=== PATIENT | male | born 1935 | race Caucasian/White ===

== ENCOUNTER 2016-12-08 06:21 | Outpatient (CLI) ==
[2016-12-08 10:31] VITALS: BMI 34.0
== END 2016-12-08 06:22 | disposition home or self-care (01) ==
LOC: AMBL 06:21
PROVIDERS: ATTEND Family Medicine
DX: R06.2 Wheezing (principal); I49.3 Ventricular premature depolarization; J45.909 Unspecified asthma, uncomplicated

== ENCOUNTER 2016-12-08 06:26 | Inpatient (IN) ==
[2016-12-08] MEDS ORDERED: DUONEB NEB STA ×2 (06:44→08:16)
[2016-12-08] MEDS ORDERED: SOLU-MEDROL 125 MG IVP STA (06:44)
[2016-12-08 06:48] LABS: ABG BASE EXCESS 0 (-2.0-2.0); ABG HCO3 24.8 (22.0-26.0); ABG PCO2 40.5 mmHg (35-45); ABG PH 7.394 (7.35-7.45); ABG TCO2 26 (22.0-28.0)
--- NOTE | 2016-12-08 06:49 | ED.PDOC ---
General Stated Complaint: Coughing congestion for couple days, patient was started on the antibiotics by PMD, today short of breath not able walk so called EMT na dbrought for the evaluation. Time Seen by Physician: 06:47 Mode of Arrival: Ambulance Information Source: Patient, Family Nursing and Triage Documentation Reviewed and Agree: Yes <NANETTE LARRY - Last Filed: 12/08/16 06:47> <MARISA POLO - Last Filed: 12/08/16 09:18> ED Provider: Dr. MARISA POLO (NANETTE LARRY) (MARISA POLO) Chief Complaint: Shortness of Air Primary Care Provider: CHELSEY BOB (NANETTE LARRY) (MARISA POLO) Respiratory Complaint Exam - Shortness of Air Complaint/Exam Symptoms Are: Still present Timing: Constant Initial Severity: Moderate Current Severity: Severe Character: Reports: Dyspnea at rest, Dyspnea on exertion Aggravating: Reports: Movement Alleviating: Reports: None Associated Signs and Symptoms: Reports: Cough, Wheezing, Nasal congestion. Denies: Chest pain with cough, Chest pain, Fever, Chills, Diaphoresis, Dizziness , Calf pain, Calf swelling, Edema, Rapid breathing, Labored breathing, Decreased intake Related History: Reports: Similar episode History of Healthcare-Acquired Pneumonia: No Pulmonary Embolism Risk Factors: Reports: None Cardiac Risk Factors: Reports: None Pseudomonas Risk Factors: Reports: None Tuberculosis Risk Factors: Reports: None Home Oxygen Use: No Recent Stress Test: No Recent Echo/LV Function: No Respiratory Distress: Moderate Stridor Present: No Tracheal Deviation: No Subcutaneous Emphysema: No Accessory Muscle Use: Yes Retractions: Supraclavicular Diminished Breath Sounds: No Prolonged Expiratory Phase: Yes Unable to Speak Full Sentences: Yes Fatigue: No Leg Swelling: No Rosemary's Sign Present: No Grunting Respirations: No Kussmaul Respirations: No Differential Diagnoses: COPD Exacerbation, Pneumonia <NANETTE LARRY - Last Filed: 12/08/16 06:47> Review of Systems - Review Of Systems Constitutional: Reports: Malaise, Weakness Eyes: Reports: No symptoms Ears, Nose, Mouth, Throat: Reports: No symptoms Respiratory: Reports: Cough, Orthopnea, Short of air Cardiac: Reports: No symptoms GI: Reports: No symptoms : Reports: No symptoms Musculoskeletal: Reports: No symptoms Skin: Reports: No symptoms Neurological: Reports: No symptoms Endocrine: Reports: No symptoms Hematologic/Lymphatic: Reports: No symptoms All Other Systems: Reviewed and Negative <NANETTE LARRY Last Filed: 12/08/16 06:47> Past Medical History - Past Medical History Previously Healthy: No Endocrine: Reports: None Cardiovascular: Reports: None Respiratory: Reports: COPD Hematological: Reports: None Gastrointestinal: Reports: None Genitourinary: Reports: Kidney stones Neuro/Psych: Reports: Anxiety Musculoskeletal: Reports: Arthritis Cancer: Reports: None - Surgical History General Surgical History: Reports: Cholecystectomy, Orthopedic (Knee replacement. ), Other ( ABDOMINAL AORTIC ANEURISM REPAIR 8 YRS AGO, BOTH KNEE REPLACEMENTS, BOTH HIP REPLACEMENTS.) - Family History Family History: Reports: Unknown - Social History Smoking Status: Never smoker Hx Substance Use: No Alcohol Screening: None - Immunizations Tetanus Shot up to Date: No (unsure) <NANETTE LARRY Last Filed: 12/08/16 06:47> Physical Exam - Physical Exam Appearance: Ill-appearing, Obese Ill-appearing: Moderate Eyes: ALEXANDRA, EOMI, Conjunctiva clear ENT: Ears normal, Nose normal, Oropharynx normal Respiratory: Breath sounds diminished, Crackles, Wheezes Cardiovascular: RRR, Pulses normal, No rub, No murmur GI/: Soft, Nontender, No masses, Bowel sounds normal, No Organomegaly Musculoskeletal: Normal strength, ROM intact, No edema, No calf tenderness Skin: Warm, Dry, Normal color Neurological: Sensation intact, Motor intact, Reflexes intact, Cranial nerves intact, Alert, Oriented Psychiatric: Affect appropriate, Mood appropriate <NANETTE LARRY Last Filed: 12/08/16 06:47> Physician Notification - Case Discussed Physician Notified: pmd Time of Notification: 09:18 (admitt) <MARISA POLO - Last Filed: 12/08/16 09:18> Critical Care Note - Critical Care Note Total Time (mins): 0 <NANETTE LARRY Filed: 12/08/16 06:47> Course - Course Hematology/Chemistry: 12/08/16 07:05 12/08/16 07:05 <MARISA POLO - Last Filed: 12/08/16 09:18> - Course Orders, Labs, Meds: Lab Review 12/08/16 12/08/16 12/08/16 06:44 06:45 07:05 WBC 12.08 H RBC 5.62 Hgb 14.6 Hct 46.0 MCV 81.9 MCH 26.0 L MCHC 31.7 L RDW Coeff of Klarissa 14.5 Plt Count 323 Immature Gran % (Auto) 0.6 Neut % (Auto) 67.1 Lymph % (Auto) 8.7 L Stephenson % (Auto) 23.3 H Eos % (Auto) 0.0 Baso % (Auto) 0.3 Immature Gran # (Auto) 0.1 Neut # 8.1 H Lymph # 1.1 Stephenson # 2.8 H Eos # 0.0 Baso # 0.0 D-Dimer 0.91 Puncture Site Lb O2 Saturation 93.0 L ABG pH 7.394 ABG pCO2 40.5 ABG pO2 67.0 L ABG HCO3 24.8 ABG Total CO2 26 ABG Base Excess 0 FiO2 % 21.0 Sodium 140 Potassium 3.9 Chloride 100 Carbon Dioxide 26 Anion Gap 17.9 BUN 19 H Creatinine 1.09 Estimated GFR (MDRD) 65.00 BUN/Creatinine Ratio 17.43 Glucose 114 Calcium 9.6 Total Bilirubin 0.72 AST 33 ALT 26 Alkaline Phosphatase 93 Total Creatine Kinase 246 CK-MB (CK-2) 3.0 CK-MB (CK-2) % 1.71757 Troponin I 0.0260 B-Natriuretic Peptide 93 Total Protein 7.5 Albumin 3.1 L Globulin 4.4 Albumin/Globulin Ratio 0.70 Influenza A (Rapid) Negative Influenza B (Rapid) Negative Orders Category Date Time Status ADMIT PATIENT INPATIENT .TO [facility] (MONITORED BED) ADMISSION 12/08/16 09: 09 Ordered ABG DRAW REQUEST Stat CARDIO 12/08/16 06:45 Completed EKG-(ED ONLY) Stat CARDIO 12/08/16 06:44 Completed EKG-(IP & OP ONLY) DAILY CARDIO 12/09/16 06:00 Ordered EKG-(IP & OP ONLY) DAILY CARDIO 12/10/16 06:00 Ordered EKG-(IP & OP ONLY) DAILY CARDIO 12/11/16 06:00 Ordered NEBULIZER TREATMENT Stat CARDIO 12/08/16 06:45 Completed NEBULIZER TREATMENT Stat CARDIO 12/08/16 08:16 Ordered OXYGEN Routine CARDIO 12/08/16 09:11 Ordered ACTIVITY .Complete BR CARE 12/08/16 09:09 Ordered TELEMETRY MONITORING TELE CARE 12/08/16 09:09 Ordered VITAL SIGNS Q8HR CARE 12/08/16 09:09 Ordered REGULAR DIET DIETARY 12/08/16 Lunch Ordered ED IV/MEDIPORT/POWERPORT .ONCE EMERGENCY 12/08/16 06:44 Active ABG Stat LAB 12/08/16 06:44 Completed B-TYPE NATRIURETIC PEPTIDE Stat LAB 12/08/16 07:05 Completed BLOOD CULTURE Stat LAB 12/08/16 07:05 Received CBC W/ AUTO DIFF DAILY@0600 LAB 12/09/16 06:00 Ordered CBC W/ AUTO DIFF DAILY@0600 LAB 12/10/16 06:00 Ordered CBC W/ AUTO DIFF DAILY@0600 LAB 12/11/16 06:00 Ordered CBC W/ AUTO DIFF DAILY@0600 LAB 12/12/16 06:00 Ordered CBC W/ AUTO DIFF DAILY@0600 LAB 12/13/16 06:00 Ordered CBC W/ AUTO DIFF DAILY@0600 LAB 12/14/16 06:00 Ordered CBC W/ AUTO DIFF DAILY@0600 LAB 12/15/16 06:00 Ordered CBC W/ AUTO DIFF DAILY@0600 LAB 12/16/16 06:00 Ordered CBC W/ AUTO DIFF DAILY@0600 LAB 12/17/16 06:00 Ordered CBC W/ AUTO DIFF DAILY@0600 LAB 12/18/16 06:00 Ordered CBC W/ AUTO DIFF DAILY@0600 LAB 12/19/16 06:00 Ordered CBC W/ AUTO DIFF DAILY@0600 LAB 12/20/16 06:00 Ordered CBC W/ AUTO DIFF DAILY@0600 LAB 12/21/16 06:00 Ordered CBC W/ AUTO DIFF DAILY@0600 LAB 12/22/16 06:00 Ordered CBC W/ AUTO DIFF DAILY@0600 LAB 12/23/16 06:00 Ordered CBC W/ AUTO DIFF DAILY@0600 LAB 12/24/16 06:00 Ordered CBC W/ AUTO DIFF DAILY@0600 LAB 12/25/16 06:00 Ordered CBC W/ AUTO DIFF DAILY@0600 LAB 12/26/16 06:00 Ordered CBC W/ AUTO DIFF DAILY@0600 LAB 12/27/16 06:00 Ordered CBC W/ AUTO DIFF DAILY@0600 LAB 12/28/16 06:00 Ordered CBC W/ AUTO DIFF Stat LAB 12/08/16 07:05 Completed COMPREHENSIVE METABOLIC PANEL DAILY@0600 LAB 12/09/16 06:00 Ordered COMPREHENSIVE METABOLIC PANEL DAILY@0600 LAB 12/10/16 06:00 Ordered COMPREHENSIVE METABOLIC PANEL DAILY@0600 LAB 12/11/16 06:00 Ordered COMPREHENSIVE METABOLIC PANEL DAILY@0600 LAB 12/12/16 06:00 Ordered COMPREHENSIVE METABOLIC PANEL DAILY@0600 LAB 12/13/16 06:00 Ordered COMPREHENSIVE METABOLIC PANEL DAILY@0600 LAB 12/14/16 06:00 Ordered COMPREHENSIVE METABOLIC PANEL DAILY@0600 LAB 12/15/16 06:00 Ordered COMPREHENSIVE METABOLIC PANEL DAILY@0600 LAB 12/16/16 06:00 Ordered COMPREHENSIVE METABOLIC PANEL DAILY@0600 LAB 12/17/16 06:00 Ordered COMPREHENSIVE METABOLIC PANEL DAILY@0600 LAB 12/18/16 06:00 Ordered COMPREHENSIVE METABOLIC PANEL DAILY@0600 LAB 12/19/16 06:00 Ordered COMPREHENSIVE METABOLIC PANEL DAILY@0600 LAB 12/20/16 06:00 Ordered COMPREHENSIVE METABOLIC PANEL DAILY@0600 LAB 12/21/16 06:00 Ordered COMPREHENSIVE METABOLIC PANEL DAILY@0600 LAB 12/22/16 06:00 Ordered COMPREHENSIVE METABOLIC PANEL DAILY@0600 LAB 12/23/16 06:00 Ordered COMPREHENSIVE METABOLIC PANEL DAILY@0600 LAB 12/24/16 06:00 Ordered COMPREHENSIVE METABOLIC PANEL DAILY@0600 LAB 12/25/16 06:00 Ordered COMPREHENSIVE METABOLIC PANEL DAILY@0600 LAB 12/26/16 06:00 Ordered COMPREHENSIVE METABOLIC PANEL DAILY@0600 LAB 12/27/16 06:00 Ordered COMPREHENSIVE METABOLIC PANEL DAILY@0600 LAB 12/28/16 06:00 Ordered COMPREHENSIVE METABOLIC PANEL Stat LAB 12/08/16 07:05 Completed CREATINE KINASE Q8H LAB 12/08/16 15:15 Ordered CREATINE KINASE Q8H LAB 12/08/16 23:15 Ordered CREATINE KINASE Stat LAB 12/08/16 07:05 Completed D-DIMER Stat LAB 12/08/16 07:05 Completed RAPID FLU A/B Stat LAB 12/08/16 06:45 Completed TROPONIN I Q8H LAB 12/08/16 15:15 Ordered TROPONIN I Q8H LAB 12/08/16 23:15 Ordered TROPONIN I Stat LAB 12/08/16 07:05 Completed 0.9 % Sodium Chloride [Saline Flush] MEDS 12/08/16 06:44 Active 1 syr IVF PRN PRN Alprazolam [Xanax] MEDS 12/08/16 09:14 Ordered 0.5 mg PO BID PRN Azithromycin [Zithromax] MEDS 12/08/16 09:30 Ordered 250 mg PO DIRECTED Ceftriaxone Sodium [Rocephin] MEDS 12/08/16 08:48 Discontinued 1 gm .ROUTE .STK-MED ONE Ceftriaxone Sodium [Rocephin] 1 gm MEDS 12/09/16 09:00 Ordered 0.9 % Sodium Chloride [Sodium Chloride] 50 ml IV DAILY Ceftriaxone Sodium [Rocephin] 1.5 gm MEDS 12/08/16 08:37 Ordered 0.9 % Sodium Chloride [Sodium Chloride] 50 ml IV ONCE Furosemide [Lasix Tab] MEDS 12/09/16 06:30 Ordered 40 mg PO QDAC Imipramine HCl [Tofranil] MEDS 12/08/16 21:00 Ordered 200 mg PO BEDTIME Ipratropium/Albuterol Neb [Duoneb] MEDS 12/08/16 06:44 Discontinued 1 vial NEB ONCE STA Ipratropium/Albuterol Neb [Duoneb] MEDS 12/08/16 08:16 Discontinued 1 vial NEB ONCE STA Levofloxacin/D5w [Levaquin] 500 mg MEDS 12/09/16 09:00 Stop Req Premix 100 ml D5w 1 bag IV DAILY Methylprednisolone Sod Succ/Pf [Solu-Medrol 125 mg] MEDS 12/08/16 06:44 Discontinued 125 mg IVP ONCE STA Methylprednisolone Sod Succ/Pf [Solu-Medrol 125 mg] MEDS 12/08/16 21:00 Ordered 60 mg IVP Q12HR Olanzapine [Zyprexa] MEDS 12/08/16 21:00 Ordered 2.5 mg PO BEDTIME Pravastatin Sodium [Pravachol] MEDS 12/08/16 21:00 Ordered 40 mg PO BEDTIME Sodium Chloride 0.9% [Sodium Chloride] 1,000 ml MEDS 12/08/16 09:30 Ordered IV 75 mls/hr CHEST, 1V AP ONLY Stat RADS 12/08/16 09:[address] CHEST W/O CONTRAST Stat RADS 12/08/16 06:44 Completed Medications Generic Name Dose Route Start Last Admin Trade Name Freq PRN Reason Stop Dose Admin Alprazolam 0.5 mg 12/08/16 09:14 Xanax PO BID PRN Anxiety Azithromycin 250 mg 12/08/16 09:30 Zithromax PO DIRECTED LIBRA Furosemide 40 mg 12/09/16 06:30 Lasix Tab PO QDAC LIBRA Ceftriaxone Sodium 1 gm/ 50 mls @ 75 mls/hr 12/09/16 09:00 Sodium Chloride IV DAILY LIBRA Sodium Chloride 1,000 mls @ 75 mls/hr 12/08/16 09:30 Sodium Chloride IV .[id number] LIBRA Imipramine HCl 200 mg 12/08/16 21:00 Tofranil PO BEDTIME LIBRA Methylprednisolone Sodium Succinate 60 mg 12/08/16 21:00 Solu-Medrol 125 Mg IVP Q12HR LIBRA Olanzapine 2.5 mg 12/08/16 21:00 Zyprexa PO BEDTIME LIBRA Pravastatin Sodium 40 mg 12/08/16 21:00 Pravachol PO BEDTIME LIBRA Sodium Chloride 1 syr 12/08/16 06:44 12/08/16 07:31 Saline Flush IVF 1 syr PRN PRN Administration To flush IV Discontinued Medications Generic Name Dose Route Start Last Admin Trade Name Freq PRN Reason Stop Dose Admin Albuterol/Ipratropium 1 vial 12/08/16 06:44 12/08/16 06:50 Duoneb NEB 12/08/16 06:45 1 vial ONCE STA Administration Albuterol/Ipratropium 1 vial 12/08/16 08:16 12/08/16 08:18 Duoneb NEB 12/08/16 08:17 1 vial ONCE STA Administration Ceftriaxone Sodium 1.5 gm/ 50 mls @ 75 mls/hr 12/08/16 08:37 12/08/16 08:54 Sodium Chloride IV 12/08/16 09:16 Not Given ONCE STA Levofloxacin/Dextrose 500 mg/ 100 mls @ 100 mls/hr 12/09/16 09:00 Dextrose IV DAILY LIBRA Methylprednisolone Sodium Succinate 125 mg 12/08/16 06:44 12/08/16 07:31 Solu-Medrol 125 Mg IVP 12/08/16 06:45 125 mg ONCE STA Administration (NANETTE LARRY) (MARISA POLO) Vital Signs: Temp Pulse Resp BP Pulse Ox 01/20/17 06:29 97.4 F L 122 H 28 H 144/100 H 88 L (NANETTE LARRY) (MARISA POLO) Departure - Departure Pt referred to PMD for follow-up: Yes Disposition Discussed With: Patient, Family <NANETTE LARRY - Last Filed: 12/08/16 06:47> - Departure Time of Disposition: 09:18 Pt referred to PMD for follow-up: Yes (admitt) <MARISA POLO - Last Filed: 12/08/16 09:18> - Departure Disposition: ADMITTED INPATIENT Discharge Problem: COPD exacerbation, Pneumonia Instructions: COPD (Chronic Obstructive Pulmonary Disease) (ED) Condition: Good Allergies/Adverse Reactions: Allergies No Known Allergies Allergy (Verified 12/08/16 06:40) Home Medications: Ambulatory Orders Escitalopram Oxalate [Lexapro] 40 tab PO DAILY 01/15/15 Furosemide [Lasix] 40 mg PO QDAC 01/15/15 Imipramine HCl [Tofranil] 200 mg PO BEDTIME 01/15/15 Memantine HCl [Namenda Xr] 28 mg PO DAILY 01/15/15 Pravastatin Sodium [Pravachol] 40 mg PO BEDTIME 01/15/15 Rivastigmine [Exelon 13.3 mg patch] 1 each TD BEDTIME 01/15/15 Alprazolam [Xanax] 0.5 mg PO BID PRN 09/07/15 Azithromycin [Zithromax] 250 mg PO DIRECTED #6 tablet 01/20/16 Methylprednisolone [Medrol Dosepak] 4 mg PO DIRECTED #1 pkg 01/20/16 Albuterol Sulfate [Proair Hfa] 2 puff IH Q4-6H PRN 12/08/16 Cyanocobalamin (Vitamin B-12) [Vitamin B-12] 500 mcg PO DAILY 12/08/16 Ergocalciferol (Vitamin D2) [Vitamin D2] 50,000 unit PO WEEKLY 12/08/16 Glycopyrrolate/Formoterol Fum [Bevespi Aerosphere Inhaler] 1 puff INH DIRECTED 12/08/16 Olanzapine [Zyprexa] 2.5 mg PO BEDTIME 12/08/16 Trazodone HCl [Desyrel] 50 mg PO DAILY PRN 12/08/16
[2016-12-08 07:22] LABS: BASOPHILS % (AUTO) 0.3 % (0.0-3.0); HEMOGLOBIN 14.6 g/dl (14.0-18.0); IMMATURE GRANULOCYTE % (AUTO) 0.6 % (0.0-5.0); LYMPHOCYTES # (AUTO) 1.1 K/uL (0.60-3.4); LYMPHOCYTES % (AUTO) 8.7 (10.0-50.0); MEAN CORPUSCULAR HGB CONC 31.7 (31.8-35.4); MEAN CORPUSCULAR VOLUME 81.9 fl (80.0-94.0); MONOCYTES # (AUTO) 2.8 K/uL (0.4-2.0); MONOCYTES % (AUTO) 23.3 (0-10); NEUTROPHILS # (AUTO) 8.1 K/ul (2.0-6.9); NEUTROPHILS % (AUTO) 67.1; PLATELET COUNT 323 10^3/uL (140-440); RED BLOOD COUNT 5.62 10^6/ul (4.70-6.10); WHITE BLOOD COUNT 12.08 K/ul (4.2-10.2)
[2016-12-08 07:53] LABS: FLU INTERNAL QC INTERNAL QC VALID; RAPID FLU A NEGATIVE (NEGATIVE); RAPID FLU B NEGATIVE (NEGATIVE)
[2016-12-08 08:01] LABS: ALBUMIN 3.1 g/dL (3.4-5.0); ALBUMIN/GLOBULIN RATIO 0.7; ANION GAP 17.9; BILIRUBIN,TOTAL 0.72 mg/dL (0.00-1.20); BUN/CREATININE RATIO 17.43; CALCIUM 9.6 mg/dL (8.2-10.2); CREATININE 1.09 mg/dL (0.60-1.10); POTASSIUM 3.9 mmol/L (3.5-5.1); TOTAL PROTEIN 7.5 g/dL (5.8-8.1); TROPONIN I 0.026 ng/ml (0.0000-0.4000)
--- NOTE | 2016-12-08 08:17 | CT ---
EXAM: CT chest without contrast. HISTORY: Cough, shortness of breath. COMPARISON: Radiograph 01/20/2016. TECHNIQUE: Multiple axial images of the chest were obtained without intravenous contrast. Images w ere reformatted in the sagittal and coronal planes. FINDINGS: Evaluation for lymphadenopathy is limited due to lack of intravenous contrast. Heart siz e is at the upper limits of normal. There is a small pericardial effusion. Atherosclerotic calcifi cations noted. Scattered nodules and ground-glass opacities are seen in both lungs, greatest in the left lower lobe . Please note the extensive respiratory motion degrades image quality. No pleural effusion or pneu mothorax identified. Limited images of the upper abdomen demonstrate no acute finding. Extensive degenerative changes se en in the shoulders. Degenerative changes present throughout the spine. Old left-sided rib fracture s noted. IMPRESSION: 1. Bilateral nodular densities in small foci of consolidation, greater on the left, consistent with pneumonia. Follow-up chest CT in 4-6 weeks recommended for reassessment. 2. Small pericardial effusion.
[2016-12-08] MEDS ORDERED: SODIUM CHLORIDE IV STA (08:37)
[2016-12-08] MEDS ORDERED: ROCEPHIN IV STA (08:37)
[2016-12-08] MEDS ORDERED: ROCEPHIN ONE (08:48)
[2016-12-08] MEDS ORDERED: SODIUM CHLORIDE 50 ML IV ONE (08:54)
[2016-12-08] MEDS ORDERED: XANAX PO PRN (09:14)
[2016-12-08 10:31] VITALS: BMI 34.0
[2016-12-08] MEDS: SODIUM CHLORIDE 1,000 ML IV SCH ×2 (11:28→11:33)
[2016-12-08] MEDS: ZITHROMAX PO SCH (12:37)
[2016-12-08 15:42] LABS: TROPONIN I 0.015 ng/ml (0.0000-0.4000)
[2016-12-08 15:47] LABS: CREATINE KINASE MB 2.9 ng/ml (0.0-3.6)
[2016-12-08] MEDS ORDERED: DUONEB NEB PRN (17:27)
[2016-12-08] MEDS ORDERED: DESYREL PO PRN (17:41)
[2016-12-08] MEDS ORDERED: DUONEB NEB ONE (17:51)
[2016-12-08] MEDS: DUONEB NEB SCH ×2 (17:51→23:25)
[2016-12-08] MEDS ORDERED: TOFRANIL PO SCH (21:00)
[2016-12-08] MEDS ORDERED: SOLU-MEDROL 125 MG IVP SCH (21:00)
[2016-12-08] MEDS: ZYPREXA PO SCH (21:06)
[2016-12-08] MEDS: PRAVACHOL PO SCH (21:07)
[2016-12-08] MEDS ORDERED: LOVENOX SUBCUT SCH (21:30)
[2016-12-08] MEDS: SOLU-MEDROL 125 MG IVP SCH (21:31)
[2016-12-08] MEDS ORDERED: LOVENOX ONE (22:20)
[2016-12-08 23:36] LABS: TROPONIN I 0.02 ng/ml (0.0000-0.4000)
[2016-12-09 00:10] LABS: CREATINE KINASE MB 3.1 ng/ml (0.0-3.6)
[2016-12-09] MEDS: SODIUM CHLORIDE 1,000 ML IV SCH ×2 (00:27→14:34)
[2016-12-09] MEDS: SOLU-MEDROL 125 MG IVP SCH ×3 (04:47→21:45)
[2016-12-09 04:56] LABS: BASOPHILS % (AUTO) 0.1 % (0.0-3.0); HEMATOCRIT 44.1 % (42.0-52.0); HEMOGLOBIN 13.4 g/dl (14.0-18.0); IMMATURE GRANULOCYTE % (AUTO) 1.3 % (0.0-5.0); LYMPHOCYTES # (AUTO) 0.7 K/uL (0.60-3.4); LYMPHOCYTES % (AUTO) 7.8 (10.0-50.0); MEAN CORPUSCULAR HEMOGLOBIN 25.1 pg (27.0-31.0); MEAN CORPUSCULAR HGB CONC 30.4 (31.8-35.4); MEAN CORPUSCULAR VOLUME 82.7 fl (80.0-94.0); MONOCYTES # (AUTO) 0.5 K/uL (0.4-2.0); MONOCYTES % (AUTO) 6.3 (0-10); NEUTROPHILS # (AUTO) 7.2 K/ul (2.0-6.9); NEUTROPHILS % (AUTO) 84.5; PLATELET COUNT 331 10^3/uL (140-440); RED BLOOD COUNT 5.33 10^6/ul (4.70-6.10); WHITE BLOOD COUNT 8.47 K/ul (4.2-10.2)
[2016-12-09] MEDS: DUONEB NEB SCH ×4 (05:05→23:13)
[2016-12-09 05:19] LABS: ALBUMIN 2.8 g/dL (3.4-5.0); ALBUMIN/GLOBULIN RATIO 0.68; ANION GAP 14.2; BILIRUBIN,TOTAL 0.37 mg/dL (0.00-1.20); BUN/CREATININE RATIO 26.85; CALCIUM 9.5 mg/dL (8.2-10.2); CREATININE 1.08 mg/dL (0.60-1.10); POTASSIUM 4.2 mmol/L (3.5-5.1); TOTAL PROTEIN 6.9 g/dL (5.8-8.1)
[2016-12-09] MEDS: LASIX TAB PO SCH (05:32)
[2016-12-09] MEDS ORDERED: LEVAQUIN 500 MG in PREMIX 100 ML D5W 1 BAG IV SCH (09:00)
[2016-12-09] MEDS ORDERED: ESCITALOPRAM OXALATE PO SCH (09:00)
[2016-12-09] MEDS: NON-FORMULARY MEDICATION (Memantine Hcl [Namenda Xr] 28 MG) PO SCH (09:06)
[2016-12-09] MEDS: ROCEPHIN 1 GM in SODIUM CHLORIDE 50 ML IV SCH (09:07)
[2016-12-09] MEDS: LEXAPRO PO SCH (09:07)
[2016-12-09] MEDS: ZITHROMAX PO SCH (09:07)
--- NOTE | 2016-12-09 09:47 | DI ---
EXAM: Single view of the chest. History: Follow-up pneumonia Comparison: Chest radiograph 01/20/2016, chest CT 12/08/2016 Findings: Stable prominent heart size. No significant interval change in the mild left greater hayder n right bibasilar lung infiltrates. Probable trace left pleural effusion. No pneumothorax. The vi sualized osseous structures unchanged with severe degenerative changes of the right glenohumeral iain nt. Impression: No significant interval change in the mild left greater than right bibasilar lung infil trates. Probable trace left pleural effusion.
[2016-12-09] MEDS ORDERED: KLONOPIN PO PRN (21:00)
[2016-12-09] MEDS ORDERED: SOLU-MEDROL 40 MG ONE (22:10)
[2016-12-09] MEDS: ZYPREXA PO SCH (22:28)
[2016-12-09] MEDS: PRAVACHOL PO SCH (22:28)
[2016-12-09] MEDS: LOVENOX SUBCUT SCH (22:28)
[2016-12-09] MEDS: TOFRANIL PO SCH (22:39)
[2016-12-10] MEDS: SODIUM CHLORIDE 1,000 ML IV SCH (04:34)
[2016-12-10] MEDS: SOLU-MEDROL 125 MG IVP SCH (05:11)
[2016-12-10 05:20] LABS: ALBUMIN 2.7 g/dL (3.4-5.0); ALBUMIN/GLOBULIN RATIO 0.75; ANION GAP 11.9; BILIRUBIN,TOTAL 0.38 mg/dL (0.00-1.20); BUN/CREATININE RATIO 32.63; CALCIUM 9.1 mg/dL (8.2-10.2); CREATININE 0.95 mg/dL (0.60-1.10); POTASSIUM 3.9 mmol/L (3.5-5.1); TOTAL PROTEIN 6.3 g/dL (5.8-8.1)
[2016-12-10] MEDS: DUONEB NEB SCH ×4 (05:38→23:18)
[2016-12-10] MEDS: LASIX TAB PO SCH (05:39)
[2016-12-10] MEDS: NON-FORMULARY MEDICATION (Memantine Hcl [Namenda Xr] 28 MG) PO SCH (08:52)
[2016-12-10] MEDS: LEXAPRO PO SCH (08:52)
[2016-12-10] MEDS: ZITHROMAX PO SCH (08:53)
[2016-12-10] MEDS: ROCEPHIN 1 GM in SODIUM CHLORIDE 50 ML IV SCH (08:53)
[2016-12-10] MEDS: SOLU-MEDROL 40 MG IVP SCH ×2 (13:19→21:24)
[2016-12-10] MEDS: TOFRANIL PO SCH (21:22)
[2016-12-10] MEDS: ZYPREXA PO SCH (21:22)
[2016-12-10] MEDS: LOVENOX SUBCUT SCH (21:23)
[2016-12-10] MEDS: PRAVACHOL PO SCH (21:23)
[2016-12-11] MEDS: SOLU-MEDROL 40 MG IVP SCH (04:53)
[2016-12-11 05:38] LABS: ALBUMIN 2.7 g/dL (3.4-5.0); ALBUMIN/GLOBULIN RATIO 0.77; ANION GAP 11.6; BILIRUBIN,TOTAL 0.32 mg/dL (0.00-1.20); BUN/CREATININE RATIO 23.52; CALCIUM 8.9 mg/dL (8.2-10.2); CREATININE 1.02 mg/dL (0.60-1.10); POTASSIUM 4.6 mmol/L (3.5-5.1); TOTAL PROTEIN 6.2 g/dL (5.8-8.1)
[2016-12-11] MEDS: LASIX TAB PO SCH (05:47)
[2016-12-11] MEDS: DUONEB NEB SCH ×4 (05:59→23:32)
[2016-12-11] MEDS ORDERED: PREDNISONE PO SCH (08:00)
[2016-12-11] MEDS: NON-FORMULARY MEDICATION (Memantine Hcl [Namenda Xr] 28 MG) PO SCH (08:49)
[2016-12-11] MEDS: PREDNISONE PO SCH ×2 (08:50→18:23)
[2016-12-11] MEDS: ROCEPHIN 1 GM in SODIUM CHLORIDE 50 ML IV SCH (08:51)
[2016-12-11] MEDS: LEXAPRO PO SCH (09:02)
--- NOTE | 2016-12-11 09:54 | DI ---
EXAM: Chest two views HISTORY: Pneumonia COMPARISON: 12/09/2016 TECHNIQUE: Two views of the chest were performed FINDINGS: There are mild bibasilar infiltrates, left greater than right, grossly unchanged. There is no definite pleural effusion or visible pneumothorax. The heart is normal in size. The mediasti nal contour is normal. There are old left-sided rib fractures. There are no acute abnormalities of t he bones. IMPRESSION: Mild bibasilar infiltrates likely representing pneumonia, left greater than right, sivakumar sly unchanged.
[2016-12-11] MEDS: ZITHROMAX PO SCH (10:15)
--- NOTE | 2016-12-11 11:59 | HP ---
SOURCE: The source of this information is prior knowledge of the patient, review of his office records, his current chart as well as discussion with he, family and ER personnel; all considered reliable. PATIENT PROFILE: Mr. Fox is a 81-year-old male resident of [place], he was cooperative. CHIEF COMPLAINT: "I am not getting any better." BRIEF HISTORY OF PRESENT ILLNESS: Mr. Fox has pulmonary fibrosis, COPD and probably previous history of asthma. He was seen in the office on the ; he complained then of onset on of nasal sinus congestion, drainage and sore throat; associated cough, wheeze. He seemed rather stable. Our treatment plan was a Medrol Dosepak, Azithromycin, Mucinex and Duoneb therapies at home. Unfortunately he worsened. When seen in the ER on CT of his chest he was felt to have some degree of pneumonia. He was felt to be stable for admission here hemodynamically and from a respiratory standpoint. He was admitted to use more aggressive intervention. PAST HISTORY: CHILDHOOD: Unremarkable. ALLERGIES/INTOLERANCE: COZAAR 25 MG (HANDS GO TO SLEEP) MEDICATIONS: (HOME) 1. Proventil/Albuterol HFA 90 mcg/inhalation two inhalations four times a day 2. Klonopin/Clonazepam 0.5 mg at night 3. Lexapro/Escitalopram 20 mg two by mouth each day 4. Lasix/Furosemide 40 mg one a day 5. Glycopyrrolate/Formoterol 9.48 mcg/inhalation, two inhalations a day 6. Tofranil/Imipramine 50 mg one by mouth each night 7. Namenda/Memantine XR 28 mg a day 8. Zyprexa/Olanzapine 2.5 mg one by mouth each night 9. Pravachol/Pravastatin 40 mg one by mouth at bedtime 10. Rivastigmine (Exelon) 9.5 mg patch apply daily HOSPITALIZATIONS/SURGERIES/PROCEDURES: He has had several colonoscopies, the last one with tortuous colon at [facility], Dr. Tellez on 05/17/12 and then EGD with dilatation and distal esophagitis with ulceration and hiatal hernia at [facility], Dr. Arevalo, 01/08. He had a right total knee, Dr. Grant, 04/14/08. He had a triple A endograft, [facility] by Scar Williamson on 11/02/09. Right total knee, [facility], Dr. Grant, 02/15/10. Lap/gallbladder, Dr. Segal [facility], 06/03/13. Endograft, Dr. Marcos Sharonda, 05/09/14. Right hip, Dr. Grant, [facility], 01/12/15. Left hip, Dr. Grant [facility], 09/01/15. [facility] admission dates include: 12/18 through 12/22/98; 01/15 through 01/20/15, swing bed for right hip; 09/06 through 09/09/15, swing bed for left hip by Dr. Crespo; all here. [facility] admissions include: 06/15 through 06/20/16 to psychiatric floor for depression. [facility] admissions include: 01/23 through 01/24/06 for edema, shortness of breath ; 04/15/08 for right total knee; 03/30 through 03/31/09 for dysphagia; 11/02 through 11/03/09 for triple A endograft; 02/15 through 02/20/10 for left total knee; 02/20 through 02/24/10, TCU for left total knee; 01/12 through 01/15/15 for right hip, Dr. Grant; 01/20 through 01/24/15, Dr. Grant for wound drainage; through 09/06/15, Dr. Grant for left hip and 09/09 through 09/17/15, Dr. Grant for wound dehisence; 09/20 through 09/21/15, Dr. Grant for wound issues and 01/24/16 for shortness of breath. HABITS: Nonsmoker; did chew from age 62 stopping at age 67. No alcohol use. FAMILY HISTORY: Heart disease in mother and father. No other family tendencies. SOCIAL HISTORY: He was employed as a [employer], retiring 1999. once to his current , 1959. He has a son and a daughter. REVIEW OF SYSTEMS: GENERAL: He has had on and off fever. There has been no injury. INTEGUMENT: He says there is no rash or open wounds. HEENT: He has a little frontal headache; nasal congestion. NECK: No mass, soreness. CHEST: No hemoptysis. CARDIOVASCULAR: No exertional chest pain and only a little stable ankle edema. GI: No nausea or vomiting or diarrhea. : No dysuria. MUSCULOSKELETAL/NEUROLOGIC: No tender, red or swollen joints. Neurologic: He has had no weakness of any extremities in an acute fashion. PSYCHIATRIC: His mood is stable and always a little depressed and he thinks his memory has been rather stable lately. ADDITIONAL TESTS: Influenza A and B were negative. Chemistries show albumin 3.1, BUN 19; cardiac enzymes are negative. Blood gas shows pH 7.39, pc02 40, p02 67 with 93% saturation on room air, bicarb 24. D. dimer only 0.91 and normal. White count is 12 with hemoglobin 14.6 otherwise unremarkable. PHYSICAL EXAMINATION: GENERAL: No obvious distress. INTEGUMENT: Eyegrounds are pink, nonicteric sclerae. No ankle edema. HEENT: Facial symmetry. Pupils equal, round, extraocular movements intact. NECK: No visible lymphadenopathy, thyromegaly, mass seen or felt and supple. CHEST: Barreled, slightly diminished, scattered crackles throughout of a very soft nature. CARDIOVASCULAR: S1, S2 without murmur or carotid bruit. GI: Protuberant, no organomegaly, mass or tenderness. : Deferred. MUSCULOSKELETAL/NEUROLOGIC: Four quadrant movements, equal; he can go from lying to sitting very easily. NEUROLOGIC: No weakness of engraver block; facial symmetry. PSYCHIATRIC: Purposeful, pleasant conversation; mood seems normal. ASSESSMENT/PROBLEM LIST: 0. 81-year-old white male of advanced age 1. Allergies/intolerances - see above 2. Procedural history - see above 3. Family history - obesity 4. Asthma 5. Chronic depression 6. Diastolic dysfunction on previous echo 7. Hypertension 8. LVH on echo 9. Rosacea 10. History of urolithiasis 11. COPD 12. Pulmonary fibrosis 13. Esophageal stricture 14. Esophageal ulcer 15. Hiatal hernia 16. Gastroesophageal reflux 17. 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 Degenerative joint disease - diffuse with several total joints 19. Chronic constipation 20. Dementia - approximately 2011 - gradually worsening 21. Hyperlipidemia - statin treated 22. Hypertension 23. Chronic insomnia 24. Peripheral neuropathy 25. Colon polyps 26. Gait decline - chronic 27. Vitamin D deficiency 28. History of bronchiectasis 29. Congestive heart failure - diastolic changes on last echo REASON FOR ADMISSION: # Pneumonia - community exposed and acquired # COPD exacerbation # Shortness of breath without hypoxemia or hypercarbia # Fatigue PLAN: 1. Medications are reviewed and we will continue an approach of Rocephin and Azithromycin with nebulized bronchodilators and IV steroids. 2. Will have to monitor labs and order labs as needed. 3. With some attention directed toward nutrition and comfort. 4. Stability of his other chronic problems as able. 5. Attention to his weakness and diminished gait. 6. Skilled care nursing supervision 7. From the onset discharge planning as directed toward home when stable. NEAL
[2016-12-11] MEDS: LOVENOX SUBCUT SCH (21:31)
[2016-12-11] MEDS: TOFRANIL PO SCH (21:31)
[2016-12-11] MEDS: PRAVACHOL PO SCH (21:31)
[2016-12-11] MEDS: ZYPREXA PO SCH (21:31)
[2016-12-12 05:00] LABS: ALBUMIN 2.9 g/dL (3.4-5.0); ALBUMIN/GLOBULIN RATIO 0.81; ANION GAP 14.4; BILIRUBIN,TOTAL 0.37 mg/dL (0.00-1.20); BUN/CREATININE RATIO 23.23; CREATININE 0.99 mg/dL (0.60-1.10); POTASSIUM 4.4 mmol/L (3.5-5.1); TOTAL PROTEIN 6.5 g/dL (5.8-8.1)
[2016-12-12] MEDS: DUONEB NEB SCH (05:35)
[2016-12-12] MEDS: LASIX TAB PO SCH (05:36)
--- NOTE | 2016-12-12 06:55 | PN ---
DATE OF VISIT: 12/09/16 SUBJECTIVE: The patient was admitted after failing outpatient management. He had several days of cough, wheeze and increasing fatigue. He has underlying chronic lung disease. He received nebulized bronchodilators, a couple doses of IV steroids, Azithromycin and Rocephin. He feels extremely better today. He says his cough is less and dry. He denies chest pain. He denies shortness of breath, lower extremity edema, wheeze, insomnia, nausea, vomiting. OBJECTIVE: V/S: Temperature 97.5 and afebrile while here; pulse 68, still occasional PVCs ; blood pressure 112/59; respirations 20. All of these are stable. GENERAL: Pleasant appearing. CHEST: Diminished but no active wheeze or dullness. CARDIOVASCULAR: Regular without murmur. I did not hear any ectopy. There is no peripheral edema. GI: Nontender. Obese. No rebound, guarding or mass. LABS/X-RAYS: Chemistry with GFR stable at 56; glucose only went to 149 and white count dropped from 12 to 8 and hemoglobin went from 14.6 to 13.4. ASSESSMENT: # Pneumonia - community exposed and acquired # COPD exacerbation # Shortness of breath without hypoxemia or hypercarbia # Fatigue He is improved and tolerating steroids. PLAN: A gentle wean between now and perhaps discharge in a couple of days. MTDD
--- NOTE | 2016-12-12 07:21 | PN ---
DATE OF VISIT: 12/10/16 SUBJECTIVE: The patient had started treatment at home for increased cough and other respiratory symptoms. He has asthma/COPD and possibly others. He did not recover well enough. He got to feeling more short of breath and presented to the ER. He was found in the ER to possibly have a pneumonia; failing outpatient therapy it was decided to admit him for more aggressive intervention. The first two days of treatment he started noticing quite a bit of improvement, a little more tired today than he was the day before. There is no nausea, vomiting or diarrhea, only occasiona cough and wheeze. No chest pain. OBJECTIVE: V/S: Temperature 96.9, pulse 77, BP 130/61, respirations 22; this pattern has been stable. I & O significant positive. GENERAL: No obvious distress. CHEST: Diminished, clear. CARDIOVASCULAR: Irregular with frequent ectopy; unifocal with pause. No peripheral edema. GI: Obese, protuberant, nontender. NEUROLOGIC: Facial symmetry; symmetric use of extremities. PSYCHIATRIC: Alert, oriented times three. Purposeful conversation, intact short and long-term memory through history. LABS/X-RAYS: Chemistries today show stable GFR and other electrolytes. ASSESSMENT: # Pneumonia - community exposed and acquired # COPD exacerbation # Shortness of breath without hypoxemia or hypercarbia # Fatigue PLAN: 1. Since we may be a little over the fluid balance he needs we are stopping his IV. 2. Continue other approach; that is medications, labs and reviewing. 3. Tomorrow we will repeat chest x-ray and involve respiratory to ascertain there is going to be oxygen needs at discharge. 4. Discharge either tomorrow or the next day. NEAL
[2016-12-12] MEDS: LEXAPRO PO SCH (08:39)
[2016-12-12] MEDS: PREDNISONE PO SCH (08:40)
[2016-12-12] MEDS: NON-FORMULARY MEDICATION (Memantine Hcl [Namenda Xr] 28 MG) PO SCH (08:40)
[2016-12-12] MEDS: ZITHROMAX PO SCH (08:41)
--- NOTE | 2016-12-12 08:54 | PN ---
DATE OF VISIT: 12/11/16 SUBJECTIVE: The patient failed outpatient treatment for his chronic lung disease exacerbation; with increasing cough, wheeze, shortness of breath, fatigue, malaise and diminished appetite. He was brought in for IV antibiotics, steroids , nebulized bronchodilators. He has slowly improved over the first 48 hours and has tolerated a wean to this point to p.o. steroids today. He denies shortness of breath, hemoptysis. He still has an occasional cough. He was taken on a 3 step today and discovered that he does not need oxygen. OBJECTIVE: V/S: Temperature 97.6, pulse 99, BP 146/86, respirations 18, 02 sat 91% on room air. GENERAL: No obvious distress. CHEST: Clear. CARDIOVASCULAR: Less ectopy; only occasional unifocal with pause. No murmurs. No edema. GI: Protuberant, obese, nontender. LABS/X-RAYS: Only chemistry with stability compared to the last two days. ASSESSMENT: # Pneumonia - community exposed and acquired # COPD exacerbation - tolerating wean # Shortness of breath without hypoxemia or hypercarbia # Fatigue PLAN: 1. Complete wean and probably home tomorrow. 2. Chest x-ray, repeat is still pending. MTDD
[2016-12-12] MEDS ORDERED: ROCEPHIN 1 GM in SODIUM CHLORIDE 50 ML IV SCH (09:00)
--- NOTE | 2016-12-12 09:12 | DS ---
SOURCE: The source of this information is prior knowledge of the patient, review of his office records, his current chart as well as discussion with he, family and ER personnel; all considered reliable. PATIENT PROFILE: Mr. Fox is a 81-year-old male resident of [place], he was cooperative. CHIEF COMPLAINT: "I am not getting any better." BRIEF HISTORY OF PRESENT ILLNESS: Mr. Fox has pulmonary fibrosis, COPD and probably previous history of asthma. He was seen in the office on the ; he complained then of onset on of nasal sinus congestion, drainage and sore throat; associated cough, wheeze. He seemed rather stable. Our treatment plan was a Medrol Dosepak, Azithromycin, Mucinex and Duoneb therapies at home. Unfortunately he worsened. When seen in the ER on CT of his chest he was felt to have some degree of pneumonia. He was felt to be stable for admission here hemodynamically and from a respiratory standpoint. He was admitted to use more aggressive intervention. PAST HISTORY: CHILDHOOD: Unremarkable. ALLERGIES/INTOLERANCE: COZAAR 25 MG (HANDS GO TO SLEEP) MEDICATIONS: (HOME) 1. Proventil/Albuterol HFA 90 mcg/inhalation two inhalations four times a day 2. Klonopin/Clonazepam 0.5 mg at night 3. Lexapro/Escitalopram 20 mg two by mouth each day 4. Lasix/Furosemide 40 mg one a day 5. Glycopyrrolate/Formoterol 9.48 mcg/inhalation, two inhalations a day 6. Tofranil/Imipramine 50 mg one by mouth each night 7. Namenda/Memantine XR 28 mg a day 8. Zyprexa/Olanzapine 2.5 mg one by mouth each night 9. Pravachol/Pravastatin 40 mg one by mouth at bedtime 10. Rivastigmine (Exelon) 9.5 mg patch apply daily HOSPITALIZATIONS/SURGERIES/PROCEDURES: He has had several colonoscopies, the last one with tortuous colon at [facility], Dr. Tellez on 05/17/12 and then EGD with dilatation and distal esophagitis with ulceration and hiatal hernia at [facility], Dr. Arevalo, 01/08. He had a right total knee, Dr. Grant, 04/14/08. He had a triple A endograft, [facility] by Scar Williamson on 11/02/09. Right total knee, [facility], Dr. Grant, 02/15/10. Lap/gallbladder, Dr. Segal [facility], 06/03/13. Endograft, Dr. Marcos Sharonda, 05/09/14. Right hip, Dr. Grant, [facility], 01/12/15. Left hip, Dr. Grant [facility], 09/01/15. [place] admission dates include: 12/18 through 12/22/98; 01/15 through 01/20/15, swing bed for right hip; 09/06 through 09/09/15, swing bed for left hip by Dr. Crespo; all here. [facility] admissions include: 06/15 through 06/20/16 to psychiatric floor for depression. [facility] admissions include: 01/23 through 01/24/06 for edema, shortness of breath ; 04/15/08 for right total knee; 03/30 through 03/31/09 for dysphagia; 11/02 through 11/03/09 for triple A endograft; 02/15 through 02/20/10 for left total knee; 02/20 through 02/24/10, TCU for left total knee; 01/12 through 01/15/15 for right hip, Dr. Grant; 01/20 through 01/24/15, Dr. Grant for wound drainage; through 09/06/15, Dr. Grant for left hip and 09/09 through 09/17/15, Dr. Grant for wound dehisence; 09/20 through 09/21/15, Dr. Grant for wound issues and 01/24/16 for shortness of breath. HABITS: Nonsmoker; did chew from age 62 stopping at age 67. No alcohol use. FAMILY HISTORY: Heart disease in mother and father. No other family tendencies. SOCIAL HISTORY: He was employed as a [employer], retiring 1999. once to his current , 1959. He has a son and a daughter. REVIEW OF SYSTEMS: GENERAL: He has had on and off fever. There has been no injury. INTEGUMENT: He says there is no rash or open wounds. HEENT: He has a little frontal headache; nasal congestion. NECK: No mass, soreness. CHEST: No hemoptysis. CARDIOVASCULAR: No exertional chest pain and only a little stable ankle edema. GI: No nausea or vomiting or diarrhea. : No dysuria. MUSCULOSKELETAL/NEUROLOGIC: No tender, red or swollen joints. Neurologic: He has had no weakness of any extremities in an acute fashion. PSYCHIATRIC: His mood is stable and always a little depressed and he thinks his memory has been rather stable lately. ADDITIONAL TESTS: Influenza A and B were negative. Chemistries show albumin 3.1, BUN 19; cardiac enzymes are negative. Blood gas shows pH 7.39, pc02 40, p02 67 with 93% saturation on room air, bicarb 24. D. dimer only 0.91 and normal. White count is 12 with hemoglobin 14.6 otherwise unremarkable. PHYSICAL EXAMINATION: GENERAL: No obvious distress. INTEGUMENT: Eyegrounds are pink, nonicteric sclerae. No ankle edema. HEENT: Facial symmetry. Pupils equal, round, extraocular movements intact. NECK: No visible lymphadenopathy, thyromegaly, mass seen or felt and supple. CHEST: Barreled, slightly diminished, scattered crackles throughout of a very soft nature. CARDIOVASCULAR: S1, S2 without murmur or carotid bruit. GI: Protuberant, no organomegaly, mass or tenderness. : Deferred. MUSCULOSKELETAL/NEUROLOGIC: Four quadrant movements, equal; he can go from lying to sitting very easily. 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 PSYCHIATRIC: Purposeful, pleasant conversation; mood seems normal. ASSESSMENT/PROBLEM LIST: 0. 81-year-old white male of advanced age 1. Allergies/intolerances - see above 2. Procedural history - see above 3. Family history - obesity 4. Asthma 5. Chronic depression 6. Diastolic dysfunction on previous echo 7. Hypertension 8. LVH on echo 9. Rosacea 10. History of urolithiasis 11. COPD 12. Pulmonary fibrosis 13. Esophageal stricture 14. Esophageal ulcer 15. Hiatal hernia 16. Gastroesophageal reflux 17. 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 Degenerative joint disease - diffuse with several total joints 19. Chronic constipation 20. Dementia - approximately 2011 - gradually worsening 21. Hyperlipidemia - statin treated 22. Hypertension 23. Chronic insomnia 24. Peripheral neuropathy 25. Colon polyps 26. Gait decline - chronic 27. Vitamin D deficiency 28. History of bronchiectasis 29. Congestive heart failure - diastolic changes on last echo REASON FOR ADMISSION: # Pneumonia - community exposed and acquired # COPD exacerbation # Shortness of breath without hypoxemia or hypercarbia # Fatigue HOSPITAL COURSE: He was admitted with IV fluids, nebulized bronchodilators and IV antibiotics and steroids. His antibiotics were Rocephin and Azithromycin. His stay here completed his five day course of Azithromycin that he was on prior to admission. He slowly improved with less cough and wheeze. He was able to wean to ambulating without oxygen requirements. His chest x-ray showed mild bibasilar infiltrates probably representing pneumonia, a little greater on the left than the right; unchanged from admission. Blood cultures are negative. His white count started at 12 and dropped to 8. His hemoglobin 14.6 dropping to 13.4 with fluids as mentioned. His chemistries while here remained within reason; the highest blood sugar recorded was 149. Again, note Influenza A and B were negative. We are moving him to the outpatient arena. DISCHARGE ASSESSMENT/PROBLEM LIST (CHANGED FROM ADMISSION): 0. 81-year-old white male of advanced age 1. Allergies/intolerances - see above 2. Procedural history - see above 3. Family history - obesity 4. Asthma 5. Chronic depression 6. Diastolic dysfunction on previous echo 7. Hypertension 8. LVH on echo 9. Rosacea 10. History of urolithiasis 11. COPD 12. Pulmonary fibrosis 13. Esophageal stricture 14. Esophageal ulcer 15. Hiatal hernia 16. Gastroesophageal reflux 17. 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 Degenerative joint disease - diffuse with several total joints 19. Chronic constipation 20. Dementia - approximately 2011 - gradually worsening 21. Hyperlipidemia - statin treated 22. Hypertension 23. Chronic insomnia 24. Peripheral neuropathy 25. Colon polyps 26. Gait decline - chronic 27. Vitamin D deficiency 28. History of bronchiectasis 29. Congestive heart failure - diastolic changes on last echo # Pneumonia - community acquired - left greater than right lower lobe # Acute asthma exacerbation # Pulmonary fibrosis # Asthma # Shortness of breath - related to the above - resolved # Fatigue - related to above - resolved PLAN: 1. Discharge 2. Medications a) Same as admission b) Omnicef 300 two a day, #14, no refill c) Duonebs #40; nebulized q.i.d. d) Medrol dosepak 3. Diet a) Low concentrated sweets b) Cardiac 4. Activity a) Gradually increase as able b) No driving until seen 5. Followup with Dr. Augustus lyn) Approximately one week PROGNOSIS: Guarded CONDITION: Stable and improved. MTDD
[2016-12-12 10:55] VITALS: BP 116/60; TEMP 97.5
== END 2016-12-12 10:20 | disposition home or self-care (01) | DRG 194 ==
LOC: ED 06:26 → MEDSURG A 09:21
PROVIDERS: ADMIT Family Medicine; ATTEND Family Medicine
DX: J18.9 Pneumonia, unspecified organism (principal); J44.1 Chronic obstructive pulmonary disease with (acute) exacerbation; J45.901 Unspecified asthma with (acute) exacerbation; I31.3 Pericardial effusion (noninflammatory); J84.10 Pulmonary fibrosis, unspecified; R06.02 Shortness of breath; R53.83 Other fatigue; Z79.899 Other long term (current) drug therapy
CPT/HCPCS: 36415; 80053; 82550; 82553; 82803; 83880; 84484; 85025; 85379; 87040; 87804; 93005; 93010; 94640; 94761; 96365; 96375; 97802; 99284

== ENCOUNTER 2016-12-22 12:32 | Outpatient (RCR) ==
[2017-01-15 12:48] VITALS: BP 132/58
== END 2017-01-16 ==
LOC: PUL.REHAB 12:32
PROVIDERS: ATTEND Family Medicine
DX: R26.9 Unspecified abnormalities of gait and mobility (principal); J18.9 Pneumonia, unspecified organism; R06.02 Shortness of breath; J45.20 Mild intermittent asthma, uncomplicated

== ENCOUNTER 2017-01-06 17:15 | Emergency (ER) ==
[2017-01-06 17:20] VITALS: BP 142/86; TEMP 98.7; BMI 30.6
[2017-01-06] MEDS ORDERED: DECADRON 4 MG/ML SDV IM STA (17:41)
--- NOTE | 2017-01-06 17:44 | ED.PDOC ---
General ED Provider: Dr. NANETTE LARRY Chief Complaint: Respiratory Complaint Stated Complaint: Stopped up in head, coughing, congestion, getting white sputum. was here couple days ago for the pneumonia. Time Seen by Physician: 17:41 Mode of Arrival: Walk-In Information Source: Patient Primary Care Provider: CHELSEY BOB Nursing and Triage Documentation Reviewed and Agree: Yes Respiratory Complaint Exam - Respiratory Complaint/Exam Symptoms Are: Still present Timing: Constant Initial Severity: Mild Current Severity: Mild Location: Nose, Chest Character: Reports: Productive cough Aggravating: Reports: Allergens, URI Alleviating: Reports: None Associated Signs and Symptoms: Reports: Dyspnea, URI, Nasal congestion, Sinus discomfort. Denies: Rapid breathing, Fever, Chills, Chest pain, Pleuritic chest pain, Wheezing, Hemoptysis, Dizziness, Calf pain, Calf swelling, Edema, Hoarseness, Vomiting, Sore throat, Weight loss, Decreased oral intake, Increased thirst, Increased appetite, Increased urination Related History: Reports: Similar episode History of Healthcare-Acquired Pneumonia: No Related Surgical History: Reports: None Pulmonary Embolism Risk Factors: None Cardiac Risk Factors: Reports: None Pseudomonas Risk Factors: Reports: None Tuberculosis Risk Factors: Reports: None Status Asthmaticus Risk Factors: Reports: None Home Oxygen Use: No Recent Stress Test: No Recent Echo/LV Function: No Current Antibiotic Use: No Current Asthma Medication Use: No Respiratory Distress: None Inadequate Respiratory Effort: No Dysphagia Present: No Stridor Present: No JVD Present: No Accessory Muscle Use: No Retractions: Not Present Diminished Breath Sounds: No Sinus Tenderness: None Differential Diagnoses: Pneumonia, Bronchitis, URI Review of Systems - Review Of Systems Constitutional: Reports: No symptoms Eyes: Reports: No symptoms Ears, Nose, Mouth, Throat: Reports: Nose discharge Respiratory: Reports: Cough, Short of air Cardiac: Reports: No symptoms GI: Reports: No symptoms : Reports: No symptoms Musculoskeletal: Reports: No symptoms Skin: Reports: No symptoms Neurological: Reports: No symptoms Endocrine: Reports: No symptoms Hematologic/Lymphatic: Reports: No symptoms All Other Systems: Reviewed and Negative Past Medical History - Past Medical History Previously Healthy: No Endocrine: Reports: None Cardiovascular: Reports: None Respiratory: Reports: COPD Hematological: Reports: None Gastrointestinal: Reports: None Genitourinary: Reports: Kidney stones Neuro/Psych: Reports: Anxiety Musculoskeletal: Reports: Arthritis Cancer: Reports: None - Surgical History General Surgical History: Reports: Cholecystectomy, Orthopedic (Knee replacement. ), Other ( ABDOMINAL AORTIC ANEURISM REPAIR 8 YRS AGO, BOTH KNEE REPLACEMENTS, BOTH HIP REPLACEMENTS.) - Family History Family History: Reports: Unknown - Social History Smoking Status: Never smoker Hx Substance Use: No Alcohol Screening: None Physical Exam - Physical Exam Appearance: Ill-appearing, Obese Ill-appearing: Mild Eyes: ALEXANDRA, EOMI, Conjunctiva clear ENT: Ears normal, Nose normal, Oropharynx normal Respiratory: Airway patent, Breath sounds diminished Cardiovascular: RRR, Pulses normal, No rub, No murmur GI/: Soft, Nontender, No masses, Bowel sounds normal, No Organomegaly Musculoskeletal: Normal strength, ROM intact, No edema, No calf tenderness Skin: Warm, Dry, Normal color Neurological: Sensation intact, Motor intact, Reflexes intact, Cranial nerves intact, Alert, Oriented Psychiatric: Affect appropriate, Mood appropriate Interpretation - Radiology Interpretation Radiology Interpretation By: Radiologist Radiology Results: Negative Exam Interpreted: CT Scan Critical Care Note - Critical Care Note Total Time (mins): 0 Course - Course Hematology/Chemistry: 01/06/17 17:55 01/06/17 17:55 Orders, Labs, Meds: Lab Review 01/06/17 17:55 WBC 5.43 RBC 5.64 Hgb 15.0 Hct 46.7 MCV 82.8 MCH 26.6 L MCHC 32.1 RDW Coeff of Klarissa 15.9 H Plt Count 223 Immature Gran % (Auto) 0.2 Neut % (Auto) 45.7 Lymph % (Auto) 26.3 [place] % (Auto) 23.2 H Eos % (Auto) 3.9 Baso % (Auto) 0.7 Immature Gran # (Auto) 0.0 Neut # 2.5 Lymph # 1.4 [place] # 1.3 Eos # 0.2 Baso # 0.0 D-Dimer 1.29 Sodium 142 Potassium 4.0 Chloride 104 Carbon Dioxide 28 Anion Gap 14.0 BUN 10 Creatinine 1.04 Estimated GFR (MDRD) 69.00 BUN/Creatinine Ratio 9.61 Glucose 91 Calcium 9.1 Total Bilirubin 0.50 AST 15 ALT 8 L Alkaline Phosphatase 102 Total Creatine Kinase 67 Troponin I 0.0100 Total Protein 7.4 Albumin 3.6 Globulin 3.8 Albumin/Globulin Ratio 0.95 Orders Category Date Time Status CBC W/ AUTO DIFF Stat LAB 01/06/17 17:55 Completed COMPREHENSIVE METABOLIC PANEL Stat LAB 01/06/17 17:55 Completed CREATINE KINASE Stat LAB 01/06/17 17:55 Completed D-DIMER Stat LAB 01/06/17 17:55 Completed TROPONIN I Stat LAB 01/06/17 17:55 Completed Dexamethasone 4 mg/ml Inj [Decadron 4 mg/ml Sdv] MEDS 01/06/17 17:41 Discontinued 4 mg IM ONCE STA CT CHEST W/O CONTRAST Stat RADS 01/06/17 17:41 Completed Medications Discontinued Medications Generic Name Dose Route Start Last Admin Trade Name Freq PRN Reason Stop Dose Admin Dexamethasone Sodium Phosphate 4 mg 01/06/17 17:41 01/06/17 17:59 Decadron 4 Mg/Ml Sdv IM 01/06/17 17:42 4 mg ONCE STA Administration Vital Signs: Temp Pulse Resp BP Pulse Ox 01/06/17 17:16 98.7 F 68 24 142/86 H 93 L Departure - Departure Time of Disposition: 18:40 Disposition: HOME SELF-CARE Discharge Problem: URTI (acute upper respiratory infection) Instructions: Upper Respiratory Infection (ED) Condition: Stable Pt referred to PMD for follow-up: Yes Additional Instructions: Keflex 500 po bid x 10 days Prednisone 10 po bid x 7 days probiotics Allergies/Adverse Reactions: Allergies No Known Allergies Allergy (Verified 01/06/17 17:21) Home Medications: Ambulatory Orders Escitalopram Oxalate [Lexapro] 40 tab PO DAILY 01/15/15 Furosemide [Lasix] 20 mg PO QDAC 01/15/15 Imipramine HCl [Tofranil] 50 mg PO BEDTIME 01/15/15 Memantine HCl [Namenda Xr] 28 mg PO DAILY 01/15/15 Pravastatin Sodium [Pravachol] 40 mg PO BEDTIME 01/15/15 Albuterol Sulfate [Proair Hfa] 2 puff IH Q4-6H PRN 12/08/16 Clonazepam [Klonopin] 0.25 mg PO BEDTIME PRN 12/08/16 Glycopyrrolate/Formoterol Fum [Bevespi Aerosphere Inhaler] 2 puff INH BID Olanzapine [Zyprexa] 2.5 mg PO BEDTIME 12/08/16 Trazodone HCl [Desyrel] 50 mg PO BEDTIME PRN 12/08/16 Ipratropium/Albuterol Neb [Duoneb] 1 vial NEB QID #40 vial.neb 12/12/16 Disposition Discussed With: Patient, Family
[2017-01-06 18:00] LABS: BASOPHILS % (AUTO) 0.7 % (0.0-3.0); EOSINOPHILS # (AUTO) 0.2 K/ul (0.0-0.7); EOSINOPHILS % (AUTO) 3.9 % (0.0-7.0); HEMATOCRIT 46.7 % (42.0-52.0); IMMATURE GRANULOCYTE % (AUTO) 0.2 % (0.0-5.0); LYMPHOCYTES # (AUTO) 1.4 K/uL (0.60-3.4); LYMPHOCYTES % (AUTO) 26.3 (10.0-50.0); MEAN CORPUSCULAR HEMOGLOBIN 26.6 pg (27.0-31.0); MEAN CORPUSCULAR HGB CONC 32.1 (31.8-35.4); MEAN CORPUSCULAR VOLUME 82.8 fl (80.0-94.0); MONOCYTES # (AUTO) 1.3 K/uL (0.4-2.0); MONOCYTES % (AUTO) 23.2 (0-10); NEUTROPHILS # (AUTO) 2.5 K/ul (2.0-6.9); NEUTROPHILS % (AUTO) 45.7; PLATELET COUNT 223 10^3/uL (140-440); RED BLOOD COUNT 5.64 10^6/ul (4.70-6.10); WHITE BLOOD COUNT 5.43 K/ul (4.2-10.2)
--- NOTE | 2017-01-06 18:21 | CT ---
EXAM: CT chest without contrast HISTORY: Cough COMPARISON: CT 12/08/2016 TECHNIQUE: Serial axial images of the chest were obtained from the lung apices to the upper abdomen without contrast. These were viewed in multiple planes. FINDINGS: There is no mediastinal or hilar adenopathy within limitations of a noncontrast CT. Ther e are multiple coronary artery calcifications. There is a small pericardial effusion. There is no obstruction of the trachea or central bronchi. There is some atelectasis right lower lobe. There is a noncalcified 0.69 cm nodule periphery left l ower lobe. There is peribronchial thickening in the left lower lobe as well as some interstitial th ickening or fibrosis. Healed rib fractures left thorax. Severe degenerative changes glenohumeral joints. No adrenal enlargement. Previous endoluminal stent graft partially visualized Impression 1. Persisting interstitial density left lower lobe suggesting chronic inflammation with some peribr onchial thickening/bronchitis. 2. There are nodules within the right left lower lobe, largest 0.69 cm periphery the left lower lob e. Follow-up suggested. 3. Small pericardial effusion similar to prior exam. Multiple coronary artery calcifications. Comment: Fleischner Society Recommendations on Incidental Pulmonary Nodule Follow-up: -measurements are for average length and width, non solid (ground glass) or partly solid nodules may require longer follow-up. Low risk patient: (minimal or absent known risk factors) <=4mm- no follow up needed >4-6mm- 12 mo, >6-8mm- initial at 6-12 mo, then 18-24 mo if no change >8mm- follow up CT at 3, 9, 24 mo, dynamic thin slice contrast CT, PET and/or biopsy High risk patient: (history of smoking or other risk factors) <=4mm- follow up CT at 12 mo >4-6mm- initial CT at 6-12 mo then 18-24 mo if no change >6-8mm- initial CT at 3-6, 9-12 then 18-24 mo >8mm- same as low risk
[2017-01-06 18:25] LABS: ALBUMIN 3.6 g/dL (3.4-5.0); ALBUMIN/GLOBULIN RATIO 0.95; BILIRUBIN,TOTAL 0.5 mg/dL (0.00-1.20); BUN/CREATININE RATIO 9.61; CALCIUM 9.1 mg/dL (8.2-10.2); CREATININE 1.04 mg/dL (0.60-1.10); TOTAL PROTEIN 7.4 g/dL (5.8-8.1); TROPONIN I 0.01 ng/ml (0.0000-0.4000)
== END 2017-01-06 18:52 | disposition home or self-care (01) ==
LOC: ED 17:15
DX: J06.9 Acute upper respiratory infection, unspecified (principal); Z79.899 Other long term (current) drug therapy
CPT/HCPCS: 36415; 80053; 82550; 84484; 85025; 85379; 96372; 99283

== ENCOUNTER 2017-01-17 10:17 | Outpatient (RCR) ==
[2017-02-16 12:28] VITALS: BP 126/56
== END 2017-02-16 ==
LOC: PUL.REHAB 10:17
PROVIDERS: ATTEND Family Medicine
DX: R26.9 Unspecified abnormalities of gait and mobility (principal); R06.02 Shortness of breath; J45.20 Mild intermittent asthma, uncomplicated; J18.9 Pneumonia, unspecified organism

== ENCOUNTER 2017-02-17 07:00 | Outpatient (RCR) ==
[2017-03-16 12:10] VITALS: BP 118/62
== END 2017-03-18 ==
LOC: PUL.REHAB 07:00
PROVIDERS: ATTEND Family Medicine
DX: R26.9 Unspecified abnormalities of gait and mobility (principal); J18.9 Pneumonia, unspecified organism; R06.02 Shortness of breath; J45.20 Mild intermittent asthma, uncomplicated

== ENCOUNTER 2017-03-19 07:59 | Outpatient (RCR) | END 2017-04-18 | LOC: PUL.REHAB 07:59 | PROVIDERS: ATTEND Family Medicine | DX: J45.20 Mild intermittent asthma, uncomplicated (principal); R06.02 Shortness of breath; J18.9 Pneumonia, unspecified organism; R26.9 Unspecified abnormalities of gait and mobility ==

== ENCOUNTER 2017-11-19 19:37 | Inpatient (IN) ==
[2017-11-19 19:46] VITALS: BMI 33.1
[2017-11-19] MEDS ORDERED: SODIUM CHLORIDE 1,000 ML IV STA (19:46)
[2017-11-19] MEDS ORDERED: DUONEB NEB STA (19:47)
[2017-11-19] MEDS ORDERED: SOLU-MEDROL 125 MG IVP STA (19:47)
[2017-11-19] MEDS ORDERED: XOPENEX 1.25 MG NEB STA (19:47)
[2017-11-19] MEDS ORDERED: ROCEPHIN 1 GM in SODIUM CHLORIDE 50 ML IV STA (19:47)
[2017-11-19] MEDS ORDERED: ROCEPHIN ONE (20:13)
--- NOTE | 2017-11-19 20:13 | DI ---
EXAM: Chest two views, 11/19/2017 HISTORY: Cough and wheezing COMPARISON: 12/11/2016 FINDINGS / IMPRESSION: Cardiomediastinal contours appear stable. Basilar interstitial opacitis may relate to atelectasis or pneumonitis. There is no focal pulmonary consolidation. No pleural effusio n or pneumothorax.
--- NOTE | 2017-11-19 20:40 | ED.PDOC ---
General ED Provider: Dr. RUBINA RAWLS-ER Chief Complaint: Shortness of Air Stated Complaint: im coughing, wheezing and sob Time Seen by Physician: 19:40 Mode of Arrival: Walk-In Information Source: Patient, Family Exam Limitations: No limitations Primary Care Provider: CHELSEY RIOS Nursing and Triage Documentation Reviewed and Agree: Yes Reviewed sepsis parameters & appropriate labs ordered?: Yes System Inflammatory Response Syndrome: Not Applicable Sepsis Protocol: For patient's 13 years and over: Temp is 96.8 and below OR 101 and greater Pulse >90 BPM Resp >20/minute Acutely Altered Mental Status Are patient's symptoms suggestive of a new infection, such as: -Pneumonia -Skin, Soft Tissue -Endocarditis -UTI -Bone, Joint Infection -Implantable Device -Acute Abdominal Infection -Wound Infection -Meningitis -Blood Stream Catheter Infection -Unknown Respiratory Complaint Exam - Respiratory Complaint/Exam Onset/Duration: several days Symptoms Are: Still present Timing: Intermittent Initial Severity: Mild Current Severity: Moderate Location: Chest Character: Reports: Non-productive cough Aggravating: Reports: URI Alleviating: Reports: Bronchodilators Associated Signs and Symptoms: Reports: Dyspnea, Fever, Chills, Wheezing, URI, Sore throat. Denies: Rapid breathing, Chest pain, Pleuritic chest pain, Hemoptysis, Dizziness, Calf pain, Calf swelling, Edema, Nasal congestion, Hoarseness, Sinus discomfort, Vomiting, Weight loss, Decreased oral intake, Increased thirst, Increased appetite, Increased urination Pseudomonas Risk Factors: Reports: Chronic Lung Disease Status Asthmaticus Risk Factors: Reports: None Home Oxygen Use: No Recent Stress Test: No Recent Echo/LV Function: No Current Antibiotic Use: No Current Asthma Medication Use: Yes Respiratory Distress: Mild Inadequate Respiratory Effort: No Dysphagia Present: No Stridor Present: No JVD Present: No Accessory Muscle Use: Yes Diminished Breath Sounds: No Sinus Tenderness: None Grunting Respirations: No Kussmaul Respirations: No Differential Diagnoses: Pneumonia, Influenza Non-Traumatic Chest Pain Syncope: EKG Performed Review of Systems - Review Of Systems Constitutional: Reports: Chills, Fever, Weakness Eyes: Reports: No symptoms Ears, Nose, Mouth, Throat: Reports: No symptoms Respiratory: Reports: Cough, Wheezing Cardiac: Reports: No symptoms GI: Reports: No symptoms : Reports: No symptoms Musculoskeletal: Reports: No symptoms Skin: Reports: No symptoms Neurological: Reports: No symptoms Endocrine: Reports: No symptoms Hematologic/Lymphatic: Reports: No symptoms All Other Systems: Reviewed and Negative Past Medical History - Past Medical History Previously Healthy: No Endocrine: Reports: None Cardiovascular: Reports: None Respiratory: Reports: COPD Hematological: Reports: None Gastrointestinal: Reports: None Genitourinary: Reports: Kidney stones Neuro/Psych: Reports: Anxiety Musculoskeletal: Reports: Arthritis Cancer: Reports: None - Surgical History General Surgical History: Reports: Cholecystectomy, Orthopedic (Knee replacement. ), Other ( ABDOMINAL AORTIC ANEURISM REPAIR 8 YRS AGO, BOTH KNEE REPLACEMENTS, BOTH HIP REPLACEMENTS.) - Family History Family History: Reports: Unknown - Social History Smoking Status: Never smoker Hx Substance Use: No Alcohol Screening: None Lives: With family - Immunizations Tetanus Shot up to Date: No (unsure) Physical Exam - Physical Exam Appearance: Well-appearing, No pain distress, Well-nourished Eyes: ALEXANDRA ENT: Rhinorrhea Neck: Supple Respiratory: Crackles, Wheezes Cardiovascular: Tachycardia GI/: Soft, Nontender, No masses, Bowel sounds normal, No Organomegaly Musculoskeletal: Normal strength, ROM intact, No edema, No calf tenderness Skin: Warm Neurological: Sensation intact, Motor intact, Reflexes intact, Cranial nerves intact, Alert, Oriented Psychiatric: Affect appropriate, Mood appropriate, Anxious Interpretation - Radiology Interpretation Radiology Interpretation By: Radiologist Radiology Results: Positive Exam Interpreted: Portable CXR - EKG Interpretation Time of EKG #1: 20:40 Rate: Normal Rhythm: Sinus Ectopy: None [place]: NL ST Segment: Normal Physician Notification - Case Discussed Physician Notified: dr rios Time of Notification: 20:40 Critical Care Note - Critical Care Note Total Time (mins): 0 Course - Course Hematology/Chemistry: 11/19/17 20:05 11/19/17 20:05 Orders, Labs, Meds: Lab Review 11/19/17 11/19/17 11/19/17 19:45 19:49 20:05 WBC 6.80 RBC 5.53 Hgb 15.1 Hct 46.6 MCV 84.3 MCH 27.3 MCHC 32.4 RDW Coeff of Klarissa 14.1 Plt Count 152 Immature Gran % (Auto) 0.3 Neut % (Auto) 41.5 Lymph % (Auto) 17.6 Alger % (Auto) 39.9 H Eos % (Auto) 0.4 Baso % (Auto) 0.3 Immature Gran # (Auto) 0.0 Neut # 2.8 Lymph # 1.2 Alger # 2.7 H Eos # 0.0 Baso # 0.0 Puncture Site Lb O2 Saturation 95.0 ABG pH 7.429 ABG pCO2 39.8 ABG pO2 76.0 L ABG HCO3 26.4 H ABG Total CO2 28 ABG Base Excess 2 Reynaldo Test + FiO2 % 21.0 Sodium Potassium Chloride Carbon Dioxide Anion Gap BUN Creatinine Estimated GFR (MDRD) BUN/Creatinine Ratio Glucose Lactic Acid Calcium Total Bilirubin AST ALT Alkaline Phosphatase Total Protein Albumin Globulin Albumin/Globulin Ratio Influenza A (Rapid) Positive by naat H Influenza B (Rapid) Negative by naat 11/19/17 11/19/17 20:05 20:05 WBC RBC Hgb Hct MCV MCH MCHC RDW Coeff of Klarissa Plt Count Immature Gran % (Auto) Neut % (Auto) Lymph % (Auto) Alger % (Auto) Eos % (Auto) Baso % (Auto) Immature Gran # (Auto) Neut # Lymph # Alger # Eos # Baso # Puncture Site O2 Saturation ABG pH ABG pCO2 ABG pO2 ABG HCO3 ABG Total CO2 ABG Base Excess Reynaldo Test FiO2 % Sodium 139 Potassium 4.3 Chloride 101 Carbon Dioxide 27 Anion Gap 15.3 BUN 24 H Creatinine 1.40 H Estimated GFR (MDRD) 49.00 BUN/Creatinine Ratio 17.14 Glucose 84 Lactic Acid 17.9 Calcium 9.1 Total Bilirubin 0.5 AST 21 ALT 9 L Alkaline Phosphatase 88 Total Protein 7.5 Albumin 3.6 Globulin 3.9 Albumin/Globulin Ratio 0.92 Influenza A (Rapid) Influenza B (Rapid) Orders Category Date Time Status ABG DRAW REQUEST Stat CARDIO 11/19/17 19:45 Ordered EKG-(ED ONLY) Stat CARDIO 11/19/17 19:45 Ordered NEBULIZER TREATMENT Stat CARDIO 11/19/17 19:47 Ordered Bowl Turner [ED MANAGER [employer] APPLIED] .ONCE EMERGENCY 11/19/17 19:46 Active ED IV/MEDIPORT/POWERPORT .ONCE EMERGENCY 11/19/17 19:46 Active ABG Stat LAB 11/19/17 19:45 Completed BLOOD CULTURE (ED ONLY) Stat LAB 11/19/17 20:05 Received CBC W/ AUTO DIFF Stat LAB 11/19/17 20:05 Completed COMPREHENSIVE METABOLIC PANEL Stat LAB 11/19/17 20:05 Completed LACTIC ACID Stat LAB 11/19/17 20:05 Completed MOLECULAR FLU A/B Stat LAB 11/19/17 19:49 Completed MOLECULAR GROUP A STREP Stat LAB 11/19/17 19:49 Completed PROCALCITONIN Stat LAB 11/19/17 20:05 Received 0.9 % Sodium Chloride [Saline Flush] MEDS 11/19/17 19:46 Ordered 1 syr IVF PRN PRN Ceftriaxone Sodium [Rocephin] MEDS 11/19/17 20:13 Discontinued 1 gm .ROUTE .STK-MED ONE Ceftriaxone Sodium [Rocephin] 1 gm MEDS 11/19/17 19:47 Discontinued 0.9 % Sodium Chloride [Sodium Chloride] 50 ml IV ONCE Ipratropium/Albuterol Neb [Duoneb] MEDS 11/19/17 19:47 Discontinued 1 vial NEB ONCE STA Levalbuterol HCl [Xopenex 1.25 mg] MEDS 11/19/17 19:47 Discontinued 1 vial NEB ONCE STA Methylprednisolone Sod Succ/Pf [Solu-Medrol 125 mg] MEDS 11/19/17 19:47 Discontinued 125 mg IVP ONCE STA Sodium Chloride 0.9% [Sodium Chloride] 1,000 ml MEDS 11/19/17 19:46 Active IV 100 mls/hr CXR [CHEST, 2 VIEWS PA & LAT] Stat RADS 11/19/17 19:45 Completed Medications Generic Name Dose Route Start Last Admin Trade Name Freq PRN Reason Stop Dose Admin Sodium Chloride 1,000 mls @ 100 mls/hr 11/19/17 19:46 11/19/17 20:33 Sodium Chloride IV 11/20/17 05:45 100 mls/hr .Q10H STA Administration Sodium Chloride 1 syr 11/19/17 19:46 11/19/17 20:17 Saline Flush IVF 1 syr PRN PRN Administration To flush IV Discontinued Medications Generic Name Dose Route Start Last Admin Trade Name Freq PRN Reason Stop Dose Admin Albuterol/Ipratropium 1 vial 11/19/17 19:47 Duoneb NEB 11/19/17 19:48 ONCE STA Ceftriaxone Sodium 1 gm/ 50 mls @ 75 mls/hr 11/19/17 19:47 11/19/17 20:33 Sodium Chloride IV 11/19/17 20:26 75 mls/hr ONCE STA Administration Levalbuterol HCl 1 vial 11/19/17 19:47 Xopenex 1.25 Mg NEB 11/19/17 19:48 ONCE STA Methylprednisolone Sodium Succinate 125 mg 11/19/17 19:47 11/19/17 20:17 Solu-Medrol 125 Mg IVP 11/19/17 19:48 125 mg ONCE STA Administration Vital Signs: Temp Pulse Resp BP Pulse Ox 11/19/17 19:38 100.8 F H 123 H 28 H 127/84 94 L Departure - Departure Time of Disposition: 20:40 Disposition: ADMITTED INPATIENT Discharge Problem: Influenza A Pneumonia Qualifiers: Pneumonia type: due to unspecified organism Laterality: bilateral Lung location : unspecified part of lung Qualified Code(s): J18.9 - Pneumonia, unspecified organism Instructions: Pneumonitis (ED) Condition: Good Pt referred to PMD for follow-up: Yes Allergies/Adverse Reactions: Allergies No Known Allergies Allergy (Verified 11/19/17 19:43) Home Medications: Ambulatory Orders Escitalopram Oxalate [Lexapro] 40 tab PO DAILY 01/15/15 Furosemide [Lasix] 20 mg PO QDAC 01/15/15 Imipramine HCl [Tofranil] 50 mg PO BEDTIME 01/15/15 Memantine HCl [Namenda Xr] 28 mg PO DAILY 01/15/15 Pravastatin Sodium [Pravachol] 40 mg PO BEDTIME 01/15/15 Albuterol Sulfate [Proair Hfa] 2 puff IH Q4-6H PRN 12/08/16 Clonazepam [Klonopin] 0.25 mg PO BEDTIME PRN 12/08/16 Glycopyrrolate/Formoterol Fum [Bevespi Aerosphere Inhaler] 2 puff INH BID Olanzapine [Zyprexa] 2.5 mg PO BEDTIME 12/08/16 Trazodone HCl [Desyrel] 50 mg PO BEDTIME PRN 12/08/16 Ipratropium/Albuterol Neb [Duoneb] 1 vial NEB QID #40 vial.neb 12/12/16 Disposition Discussed With: Patient, Family
[2017-11-19] MEDS ORDERED: DESYREL PO PRN (20:45)
[2017-11-19] MEDS ORDERED: KLONOPIN PO PRN (20:45)
[2017-11-19] MEDS ORDERED: NON-FORMULARY MEDICATION (Glycopyrrolate/Formoterol Fum [Bevespi Aerosphere Inhaler] 2 PUF INH SCH (21:00)
[2017-11-19] MEDS ORDERED: SODIUM CHLORIDE 1,000 ML IV SCH (21:00)
[2017-11-19] MEDS: SOLU-MEDROL 40 MG IVP SCH (21:05)
[2017-11-19] MEDS: TOFRANIL PO SCH (21:14)
[2017-11-19] MEDS: ZYPREXA PO SCH (21:25)
[2017-11-19] MEDS: PRAVACHOL PO SCH (21:25)
[2017-11-19] MEDS: TAMIFLU PO SCH (21:25)
[2017-11-19] MEDS: DUONEB NEB SCH (23:10)
[2017-11-20] MEDS: DUONEB NEB SCH ×4 (05:56→23:08)
[2017-11-20] MEDS ORDERED: LASIX TAB ONE (06:17)
[2017-11-20] MEDS ORDERED: VANCOMYCIN ONE (06:17)
[2017-11-20] MEDS ORDERED: VANCOMYCIN 1,000 MG in SODIUM CHLORIDE 200 ML IV SCH (06:30)
[2017-11-20] MEDS ORDERED: LASIX TAB PO SCH (06:30)
[2017-11-20] MEDS ORDERED: ESCITALOPRAM OXALATE PO SCH (09:00)
[2017-11-20] MEDS ORDERED: ROCEPHIN 1 GM in SODIUM CHLORIDE 50 ML IV SCH (09:00)
[2017-11-20] MEDS ORDERED: NON-FORMULARY MEDICATION (Memantine Hcl [Namenda Xr] 28 MG) PO SCH (09:00)
[2017-11-20] MEDS: LOVENOX SUBCUT SCH (09:07)
[2017-11-20] MEDS: SOLU-MEDROL 40 MG IVP SCH ×4 (09:15→22:26)
[2017-11-20] MEDS: NAMENDA PO SCH ×2 (09:16→20:23)
[2017-11-20] MEDS: ZITHROMAX PO SCH (09:16)
[2017-11-20] MEDS: TAMIFLU PO SCH ×2 (09:17→20:24)
[2017-11-20] MEDS: LEXAPRO PO SCH (09:18)
[2017-11-20] MEDS: NON-FORMULARY MEDICATION (Glycopyrrolate/Formoterol Fum [Bevespi Aerosphere Inhaler] 2 PUF INH SCH ×2 (09:20→20:24)
[2017-11-20] MEDS: ZOSYN 3.375 GM 3.375 GM in SODIUM CHLORIDE 50 ML IV SCH ×3 (12:08→23:21)
[2017-11-20] MEDS ORDERED: ZOSYN 3.375 GM 3.375 GM in SODIUM CHLORIDE 50 ML IV SCH (13:00)
[2017-11-20] MEDS: ZYPREXA PO SCH (20:23)
[2017-11-20] MEDS: TOFRANIL PO SCH (20:23)
[2017-11-20] MEDS: VANCOMYCIN 1 GM in SODIUM CHLORIDE 250 ML IV SCH (20:23)
[2017-11-20] MEDS: PRAVACHOL PO SCH (20:24)
[2017-11-21] MEDS: DUONEB NEB SCH ×4 (04:51→23:34)
[2017-11-21] MEDS: LASIX TAB PO SCH (05:32)
[2017-11-21] MEDS: ZOSYN 3.375 GM 3.375 GM in SODIUM CHLORIDE 50 ML IV SCH ×2 (05:33→13:03)
[2017-11-21] MEDS: SOLU-MEDROL 40 MG IVP SCH ×3 (07:30→16:26)
[2017-11-21] MEDS: NAMENDA PO SCH ×2 (09:36→20:16)
[2017-11-21] MEDS: VANCOMYCIN 1 GM in SODIUM CHLORIDE 250 ML IV SCH (09:36)
[2017-11-21] MEDS: ZITHROMAX PO SCH (09:36)
[2017-11-21] MEDS: TAMIFLU PO SCH ×2 (09:36→20:16)
[2017-11-21] MEDS: LOVENOX SUBCUT SCH (09:37)
[2017-11-21] MEDS: LEXAPRO PO SCH (09:37)
[2017-11-21] MEDS: NON-FORMULARY MEDICATION (Glycopyrrolate/Formoterol Fum [Bevespi Aerosphere Inhaler] 2 PUF INH SCH ×2 (11:35→20:17)
--- NOTE | 2017-11-21 16:06 | DI ---
EXAM: Chest two view, frontal and lateral views. HISTORY: Cough. COMPARISON: 11/26/2017. FINDINGS: Heart size is normal. There is no vascular congestion. There are stable linear opacities in the left lower lobe. Lungs otherwise clear without pleural effusion or pneumothorax. Old left-s ided rib fractures noted. Degenerative changes seen in the shoulders and spine. IMPRESSION: Stable left lower lobe scarring. No acute process.
[2017-11-21] MEDS: ZYPREXA PO SCH (20:16)
[2017-11-21] MEDS: TOFRANIL PO SCH (20:16)
[2017-11-21] MEDS: PRAVACHOL PO SCH (20:16)
[2017-11-22] MEDS: DUONEB NEB SCH ×3 (05:09→14:22)
[2017-11-22] MEDS: LASIX TAB PO SCH (05:32)
[2017-11-22 06:20] VITALS: TEMP 97.9
[2017-11-22] MEDS ORDERED: LEVAQUIN PO SCH (06:30)
[2017-11-22] MEDS ORDERED: PREDNISONE PO SCH (08:00)
[2017-11-22] MEDS: LOVENOX SUBCUT SCH (08:32)
[2017-11-22] MEDS: LEXAPRO PO SCH (08:32)
[2017-11-22] MEDS: NAMENDA PO SCH (08:33)
[2017-11-22] MEDS: TAMIFLU PO SCH (08:33)
[2017-11-22] MEDS: NON-FORMULARY MEDICATION (Glycopyrrolate/Formoterol Fum [Bevespi Aerosphere Inhaler] 2 PUF INH SCH (08:34)
[2017-11-22] MEDS ORDERED: ZITHROMAX PO SCH (09:00)
[2017-11-22 14:42] VITALS: BP 107/64
== END 2017-11-22 19:00 | disposition home or self-care (01) | DRG 194 ==
LOC: ED 19:37 → MEDSURG B 11-20 11:46
PROVIDERS: ADMIT Family Medicine; ATTEND Family Medicine
DX: J18.9 Pneumonia, unspecified organism (principal); J47.0 Bronchiectasis with acute lower respiratory infection; J11.1 Influenza due to unidentified influenza virus with other respiratory manifestations; J20.9 Acute bronchitis, unspecified; N28.9 Disorder of kidney and ureter, unspecified; D70.9 Neutropenia, unspecified; D69.6 Thrombocytopenia, unspecified; R06.02 Shortness of breath; R00.0 Tachycardia, unspecified; Z79.899 Other long term (current) drug therapy; Z87.891 Personal history of nicotine dependence
CPT/HCPCS: 36415; 80053; 82803; 83605; 84145; 85025; 87040; 87502; 87651; 93005; 93010; 94640; 96361; 96365; 96367; 96375; 99284

== ENCOUNTER 2018-12-27 14:49 | Emergency (ER) ==
[2018-12-27 14:54] VITALS: BP 148/65; TEMP 97.5; BMI 34.9
--- NOTE | 2018-12-27 15:57 | ED.PDOC ---
General ED Provider: Dr. MARISA POLO Chief Complaint: Finger Laceration Stated Complaint: RIGHT THUMB LACERATION Time Seen by Physician: 15:00 Mode of Arrival: Walk-In Information Source: Patient Exam Limitations: No limitations Primary Care Provider: CHELSEY BOB Nursing and Triage Documentation Reviewed and Agree: Yes Does patient meet sepsis criteria?: No System Inflammatory Response Syndrome: Not Applicable Sepsis Protocol: For patient's 13 years and over: Temp is 96.8 and below OR 101 and greater Pulse >90 BPM Resp >20/minute Acutely Altered Mental Status Are patient's symptoms suggestive of a new infection, such as: -Pneumonia -Skin, Soft Tissue -Endocarditis -UTI -Bone, Joint Infection -Implantable Device -Acute Abdominal Infection -Wound Infection -Meningitis -Blood Stream Catheter Infection -Unknown Musculoskeletal Complaint Exam - Hand/Wrist Complaint/Exam Location of Pain: Reports: Right, Digit #1 Mechanism of Injury: Reports: Trauma (SHARP METAL) Onset/Duration: 1 HR AGO Symptoms Are: Still present Onset of Pain: Reports: Immediate Initial Severity: Mild Current Severity: Mild Location: Reports: Discrete Character: Reports: Burning Alleviating: Reports: Rest Aggravating: Reports: Movement Associated Signs and Symptoms: Denies: Swelling, Redness, Bruising, Fever, Weakness, Numbness, Tingling Dominant Hand: Right Related Surgical History: Reports: None Hand/Wrist Findings: Present: Laceration Review of Systems - Review Of Systems Constitutional: Reports: No symptoms Eyes: Reports: No symptoms Ears, Nose, Mouth, Throat: Reports: No symptoms Respiratory: Reports: No symptoms Cardiac: Reports: No symptoms GI: Reports: No symptoms : Reports: No symptoms Musculoskeletal: Reports: No symptoms Skin: Reports: Other (LACERATION RIGHT THUMB) Neurological: Reports: No symptoms Endocrine: Reports: No symptoms Hematologic/Lymphatic: Reports: No symptoms All Other Systems: Reviewed and Negative Past Medical History - Past Medical History Previously Healthy: No Endocrine: Reports: None Cardiovascular: Reports: None Respiratory: Reports: COPD Hematological: Reports: None Gastrointestinal: Reports: None Genitourinary: Reports: Kidney stones Neuro/Psych: Reports: Anxiety Musculoskeletal: Reports: Arthritis Cancer: Reports: None - Surgical History General Surgical History: Reports: Cholecystectomy, Orthopedic (Knee replacement. ), Other ( ABDOMINAL AORTIC ANEURISM REPAIR 8 YRS AGO, BOTH KNEE REPLACEMENTS, BOTH HIP REPLACEMENTS.) - Family History Family History: Reports: Unknown - Social History Smoking Status: Never smoker Hx Substance Use: No Alcohol Screening: None Physical Exam - Physical Exam Appearance: Well-appearing, No pain distress, Well-nourished Eyes: ALEXANDRA, EOMI, Conjunctiva clear ENT: Ears normal, Nose normal, Oropharynx normal Respiratory: Airway patent, Breath sounds clear, Breath sounds equal, Respirations nonlabored Cardiovascular: RRR, Pulses normal, No rub, No murmur GI/: Soft, Nontender, No masses, Bowel sounds normal, No Organomegaly Musculoskeletal: Normal strength, ROM intact, No edema, No calf tenderness Skin: Warm, Dry (LACERATION RIGHT THUMB SEE PHOTOS , AVULSION TYPE LACERATOIN 3 MM NO F/B) Neurological: Sensation intact, Motor intact, Reflexes intact, Cranial nerves intact, Alert, Oriented Psychiatric: Affect appropriate, Mood appropriate Critical Care Note - Critical Care Note Total Time (mins): 0 Course - Course Vital Signs: Temp Pulse Resp BP Pulse Ox 12/27/18 14:52 97.5 F L 94 H 20 148/65 H 95 Departure - Departure Time of Disposition: 15:57 Disposition: HOME SELF-CARE Discharge Problem: Laceration of finger Instructions: Laceration (ED), Laceration (DC) Condition: Good Pt referred to PMD for follow-up: Yes IPMP verified?: No Allergies/Adverse Reactions: Allergies No Known Allergies Allergy (Verified 12/27/18 14:54) Home Medications: Ambulatory Orders Escitalopram Oxalate [Lexapro] 40 tab PO DAILY 01/15/15 Furosemide [Lasix] 20 mg PO QDAC 01/15/15 Memantine HCl [Namenda Xr] 28 mg PO DAILY 01/15/15 Pravastatin Sodium [Pravachol] 40 mg PO BEDTIME 01/15/15 Albuterol Sulfate [Proair Hfa] 2 puff IH Q4-6H PRN 12/08/16 Olanzapine [Zyprexa] 2.5 mg PO BEDTIME 12/08/16 Calcium Carbonate/Vitamin D3 [Calcium 600 + Vit D 400 Tablet] 1 each PO DAILY Doxycycline Hyclate 100 mg PO Q12HR 12/27/18 Nortriptyline HCl [Pamelor] 75 mg PO DAILY 12/27/18
== END 2018-12-27 16:14 | disposition home or self-care (01) ==
LOC: ED 14:49
DX: S61.011A Laceration without foreign body of right thumb without damage to nail, initial encounter (principal); W26.8XXA Contact with other sharp object(s), not elsewhere classified, initial encounter
CPT/HCPCS: 99282

== ENCOUNTER 2019-03-12 19:04 | Emergency (ER) ==
[2019-03-12 19:08] VITALS: BP 147/80; TEMP 98.2
[2019-03-12] MEDS ORDERED: SOLU-MEDROL 125 MG IVP STA (19:12)
[2019-03-12] MEDS ORDERED: XOPENEX 1.25 MG NEB STA (19:12)
[2019-03-12] MEDS ORDERED: DUONEB NEB STA (19:12)
[2019-03-12] MEDS ORDERED: ALBUTEROL 0.042% NEB NEB STA (19:13)
[2019-03-12 19:16] VITALS: BMI 36.1
--- NOTE | 2019-03-12 20:53 | CT ---
EXAM: CT of the chest without contrast History: Short of breath, productive cough. Comparison: Chest CT 01/06/2017 Technique: Multiplanar CT images through the thorax were obtained without the administration of IV c ontrast Findings: Heart is mildly enlarged. Coronary calcifications. No significant interval change in the small pericardial effusion. No thoracic aortic aneurysm. No axillary lymphadenopathy. No patholog ically enlarged mediastinal lymph nodes. Evaluation for hilar lymph nodes is limited due to the lack of contrast administration. There is motion artifact which limits evaluation. Persistent bronchial wall thickening with stable chronic in interstitial infiltrates in the left lower lobe. No developi ng opacities. No pleural fluid and no pneumothorax. Within the visualized upper abdomen, status post cholecystectomy. Stomach is mild to moderately dist ended. 3 mm calculus within the right kidney. No acute osseous abnormalities. Degenerative changes of the spine. Degenerative changes of the bilateral glenohumeral joints. Impression: 1. No change in the bronchial wall thickening and chronic interstitial infiltrate in the left lower lobe. No developing lung opacities. 2. Mild cardiomegaly and stable small pericardial effusion. 3. Coronary artery disease
--- NOTE | 2019-03-12 21:02 | ED.PDOC ---
General ED Provider: Dr. RUBINA RAWLS-ER Chief Complaint: Shortness of Air Stated Complaint: im coughing and wheezing Time Seen by Physician: 19:10 Mode of Arrival: Walk-In Information Source: Patient, Family Exam Limitations: No limitations Primary Care Provider: CHELSEY RIOS Nursing and Triage Documentation Reviewed and Agree: Yes Does patient meet sepsis criteria?: No System Inflammatory Response Syndrome: Not Applicable Sepsis Protocol: For patient's 13 years and over: Temp is 96.8 and below OR 101 and greater Pulse >90 BPM Resp >20/minute Acutely Altered Mental Status Are patient's symptoms suggestive of a new infection, such as: -Pneumonia -Skin, Soft Tissue -Endocarditis -UTI -Bone, Joint Infection -Implantable Device -Acute Abdominal Infection -Wound Infection -Meningitis -Blood Stream Catheter Infection -Unknown Respiratory Complaint Exam - Respiratory Complaint/Exam Onset/Duration: 3 days Symptoms Are: Still present Timing: Constant Initial Severity: Mild Current Severity: Mild Location: Chest Character: Reports: Non-productive cough Aggravating: Reports: URI Associated Signs and Symptoms: Reports: Dyspnea, Wheezing History of Healthcare-Acquired Pneumonia: No Home Oxygen Use: No Recent Stress Test: No Recent Echo/LV Function: No Current Antibiotic Use: No Current Asthma Medication Use: Yes Respiratory Distress: None Inadequate Respiratory Effort: No Dysphagia Present: No Stridor Present: No JVD Present: No Accessory Muscle Use: No Retractions: Not Present Diminished Breath Sounds: No Sinus Tenderness: None Grunting Respirations: No Kussmaul Respirations: No Differential Diagnoses: COPD Exacerbation Review of Systems - Review Of Systems Constitutional: Reports: No symptoms Eyes: Reports: No symptoms Ears, Nose, Mouth, Throat: Reports: No symptoms Respiratory: Reports: Cough, Wheezing Cardiac: Reports: No symptoms GI: Reports: No symptoms : Reports: No symptoms Musculoskeletal: Reports: No symptoms Skin: Reports: No symptoms Neurological: Reports: No symptoms Endocrine: Reports: No symptoms Hematologic/Lymphatic: Reports: No symptoms All Other Systems: Reviewed and Negative Past Medical History - Past Medical History Previously Healthy: No Endocrine: Reports: None Cardiovascular: Reports: None Respiratory: Reports: COPD Hematological: Reports: None Gastrointestinal: Reports: None Genitourinary: Reports: Kidney stones Neuro/Psych: Reports: Anxiety Musculoskeletal: Reports: Arthritis Cancer: Reports: None - Surgical History General Surgical History: Reports: Cholecystectomy, Orthopedic (Knee replacement. ), Other ( ABDOMINAL AORTIC ANEURISM REPAIR 8 YRS AGO, BOTH KNEE REPLACEMENTS, BOTH HIP REPLACEMENTS.) - Family History Family History: Reports: Unknown - Social History Smoking Status: Never smoker Hx Substance Use: No Alcohol Screening: None Physical Exam - Physical Exam Appearance: Well-appearing, No pain distress, Well-nourished Eyes: ALEXANDRA, EOMI, Conjunctiva clear ENT: Ears normal, Nose normal, Oropharynx normal Neck: Supple Respiratory: Airway patent, Breath sounds clear, Breath sounds equal, Respirations nonlabored, Wheezes Cardiovascular: RRR, Pulses normal, No rub, No murmur GI/: Soft, Nontender, No masses, Bowel sounds normal, No Organomegaly Musculoskeletal: Normal strength, ROM intact, No edema, No calf tenderness Skin: Warm, Dry, Normal color Neurological: Sensation intact, Motor intact, Reflexes intact, Cranial nerves intact, Alert, Oriented Psychiatric: Affect appropriate, Mood appropriate Interpretation - Radiology Interpretation Radiology Interpretation By: Radiologist Radiology Results: Negative Exam Interpreted: CT Scan - EKG Interpretation Time of EKG #1: 21:01 Rate: Normal Rhythm: Sinus Ectopy: None Post: NL ST Segment: Normal Interpretation: nsr Re-Evaluation - Re-Evaluation Time of Re-Evaluation: 21:01 Status: Improved Vital Signs Stable: Yes Pain Level: 0 Appearance: NAD Lungs: Clear Skin: Warm and Dry Neuro: Alert and Oriented X3 CV: RRR Critical Care Note - Critical Care Note Total Time (mins): 0 Course - Course Hematology/Chemistry: 03/12/19 19:36 03/12/19 19:36 Orders, Labs, Meds: Lab Review 03/12/19 03/12/19 03/12/19 19:11 19:19 19:36 WBC 6.55 RBC 5.35 Hgb 14.7 Hct 46.2 MCV 86.4 MCH 27.5 MCHC 31.8 RDW Coeff of Klarissa 13.6 Plt Count 166 Immature Gran % (Auto) 0.3 Neut % (Auto) 43.7 Lymph % (Auto) 28.5 [place] % (Auto) 24.0 H Eos % (Auto) 3.2 Baso % (Auto) 0.3 Immature Gran # (Auto) 0.0 Neut # (Auto) 2.9 Lymph # (Auto) 1.9 [place] # (Auto) 1.6 Eos # (Auto) 0.2 Baso # (Auto) 0.0 Puncture Site Lb O2 Saturation 94.0 L ABG pH 7.418 ABG pCO2 44.5 ABG pO2 72.0 L ABG HCO3 28.7 H ABG Total CO2 30 H ABG Base Excess 4 H Reynaldo Test + FiO2 % 21.0 Sodium Potassium Chloride Carbon Dioxide Anion Gap BUN Creatinine Estimated GFR (MDRD) BUN/Creatinine Ratio Glucose Lactic Acid Calcium Total Bilirubin AST ALT Alkaline Phosphatase NT-Pro-B Natriuret Pep Total Protein Albumin Globulin Albumin/Globulin Ratio Procalcitonin Influ A Molecular Assay Negative by naat Influ B Molecular Assay Negative by naat 03/12/19 03/12/19 03/12/19 19:36 19:36 19:36 WBC RBC Hgb Hct MCV MCH MCHC RDW Coeff of Klarissa Plt Count Immature Gran % (Auto) Neut % (Auto) Lymph % (Auto) [place] % (Auto) Eos % (Auto) Baso % (Auto) Immature Gran # (Auto) Neut # (Auto) Lymph # (Auto) [place] # (Auto) Eos # (Auto) Baso # (Auto) Puncture Site O2 Saturation ABG pH ABG pCO2 ABG pO2 ABG HCO3 ABG Total CO2 ABG Base Excess Reynaldo Test FiO2 % Sodium 139.0 Potassium 4.26 Chloride 102.2 Carbon Dioxide 27.0 Anion Gap 14.06 BUN 15.4 Creatinine 1.34 H Estimated GFR (MDRD) 51.00 BUN/Creatinine Ratio 11.49 Glucose 114.3 H Lactic Acid 1.73 Calcium 8.85 Total Bilirubin 0.46 AST 20.1 ALT 13.7 Alkaline Phosphatase 80.3 NT-Pro-B Natriuret Pep 192.000 Total Protein 6.87 Albumin 4.37 Globulin 2.50 Albumin/Globulin Ratio 1.74 Procalcitonin Influ A Molecular Assay Influ B Molecular Assay 03/12/19 19:36 WBC RBC Hgb Hct MCV MCH MCHC RDW Coeff of Klarissa Plt Count Immature Gran % (Auto) Neut % (Auto) Lymph % (Auto) [place] % (Auto) Eos % (Auto) Baso % (Auto) Immature Gran # (Auto) Neut # (Auto) Lymph # (Auto) [place] # (Auto) Eos # (Auto) Baso # (Auto) Puncture Site O2 Saturation ABG pH ABG pCO2 ABG pO2 ABG HCO3 ABG Total CO2 ABG Base Excess Reynaldo Test FiO2 % Sodium Potassium Chloride Carbon Dioxide Anion Gap BUN Creatinine Estimated GFR (MDRD) BUN/Creatinine Ratio Glucose Lactic Acid Calcium Total Bilirubin AST ALT Alkaline Phosphatase NT-Pro-B Natriuret Pep Total Protein Albumin Globulin Albumin/Globulin Ratio Procalcitonin < 0.05 Influ A Molecular Assay Influ B Molecular Assay Orders Category Date Time Status ABG DRAW REQUEST Stat CARDIO 03/12/19 19:12 Completed EKG-(ED ONLY) Stat CARDIO 03/12/19 19:11 Completed NEBULIZER TREATMENT Stat CARDIO 03/12/19 19:13 Completed ED CHILD WATCH ATTENDANT APPLIED .ONCE EMERGENCY 03/12/19 19:12 Active ED IV/MEDIPORT/POWERPORT .ONCE EMERGENCY 03/12/19 19:11 Active ABG Stat LAB 03/12/19 19:11 Completed BLOOD CULTURE (ED ONLY) Stat LAB 03/12/19 19:36 Received CBC W/ AUTO DIFF Stat LAB 03/12/19 19:36 Completed COMPREHENSIVE METABOLIC PANEL Stat LAB 03/12/19 19:36 Completed FLU A/B MOLECULAR Stat LAB 03/12/19 19:19 Completed LACTIC ACID Stat LAB 03/12/19 19:36 Completed PRO-BNP [NT-PROBNP] Stat LAB 03/12/19 19:36 Completed PROCALCITONIN Stat LAB 03/12/19 19:36 Completed 0.9 % Sodium Chloride [Saline Flush] MEDS 03/12/19 19:11 Ordered 1 syr IVF PRN PRN Albuterol Sulfate 0.042% Neb [Albuterol 0.042% Neb] MEDS 03/12/19 19:13 Discontinued 1 vial NEB ONCE STA Ipratropium/Albuterol Neb [Duoneb] MEDS 03/12/19 19:12 Discontinued 1 vial NEB ONCE STA Levalbuterol HCl [Xopenex 1.25 mg] MEDS 03/12/19 19:12 Discontinued 1 vial NEB ONCE STA Methylprednisolone Sod Succ/Pf [Solu-Medrol 125 mg] MEDS 03/12/19 19:12 Discontinued 125 [address] IVP ONCE STA CT CHEST W/O CONTRAST Stat RADS 03/12/19 19:13 Completed Medications Generic Name Dose Route Start Last Admin Trade Name Freq PRN Reason Stop Dose Admin Sodium Chloride 1 syr 03/12/19 19:11 03/12/19 19:33 Saline Flush IVF 1 syr PRN PRN Administration To flush IV Discontinued Medications Generic Name Dose Route Start Last Admin Trade Name Courtney PRN Reason Stop Dose Admin Albuterol Sulfate 1 vial 03/12/19 19:13 03/12/19 20:10 Albuterol 0.042% [facility] 03/12/19 19:14 1 vial ONCE STA Administration Albuterol/Ipratropium 1 vial 03/12/19 19:12 03/12/19 19:55 Duoneb NEB 03/12/19 19:13 1 vial ONCE STA Administration Levalbuterol HCl 1 vial 03/12/19 19:12 03/12/19 19:40 Xopenex 1.25 Mg NEB 03/12/19 19:13 1 vial ONCE STA Administration Methylprednisolone Sodium Succinate 125 mg 03/12/19 19:12 03/12/19 19:33 Solu-Medrol 125 Mg IVP 03/12/19 19:13 125 mg ONCE STA Administration Vital Signs: Temp Pulse Resp BP Pulse Ox 03/12/19 19:04 98.2 F 108 H 24 147/80 H 96 Departure - Departure Time of Disposition: 21:02 Disposition: HOME SELF-CARE Discharge Problem: Asthmatic bronchitis Qualifiers: Asthma severity: moderate Asthma persistence: persistent Asthma complication type: with acute exacerbation Qualified Code(s): J45.41 - Moderate persistent asthma with (acute) exacerbation Instructions: Wheezing (ED), COPD (Chronic Obstructive Pulmonary Disease) (ED) Condition: Good Pt referred to PMD for follow-up: Yes IPMP verified?: No Additional Instructions: f/u with dr rios--scripts for augmentin and prednisone issued Allergies/Adverse Reactions: Allergies No Known Allergies Allergy (Verified 03/12/19 19:08) Home Medications: Ambulatory Orders Escitalopram Oxalate [Lexapro] 40 tab PO DAILY 01/15/15 Furosemide [Lasix] 20 mg PO QDAC 01/15/15 Memantine HCl [Namenda Xr] 28 mg PO DAILY 01/15/15 Pravastatin Sodium [Pravachol] 40 mg PO BEDTIME 01/15/15 Albuterol Sulfate [Proair Hfa] 2 puff IH Q4-6H PRN 12/08/16 Olanzapine [Zyprexa] 2.5 mg PO BEDTIME 12/08/16 Calcium Carbonate/Vitamin D3 [Calcium 600 + Vit D 400 Tablet] 1 each PO DAILY Doxycycline Hyclate 100 mg PO Q12HR 12/27/18 Nortriptyline HCl [Pamelor] 75 mg PO DAILY 12/27/18 Amoxicillin/Potassium Clav [Augmentin 875-125 mg Tab] 1 tab PO Q12HR #20 tablet 03/12/19 Disposition Discussed With: Patient, Family
== END 2019-03-12 21:11 | disposition home or self-care (01) ==
LOC: ED 19:04
DX: J45.41 Moderate persistent asthma with (acute) exacerbation (principal); R06.02 Shortness of breath; Z79.899 Other long term (current) drug therapy
CPT/HCPCS: 36415; 80053; 82803; 83605; 83880; 84145; 85025; 87040; 87502; 93005; 93010; 94640; 99284

== ENCOUNTER 2019-07-09 18:11 | Outpatient (CLI) | END 2019-07-09 18:12 | disposition home or self-care (01) | LOC: LAB 18:11 | PROVIDERS: ATTEND Surgery | DX: R97.20 Elevated prostate specific antigen [PSA] (principal) | CPT/HCPCS: 36415; 84153 ==